=== PATIENT | female | born 1975 | race Hispanic/Latino ===

== ENCOUNTER 2023-11-14 07:26 | Day surgery (SDC) | payer BC ==
[2023-11-13 09:12] LABS: Specific Gravity 1.007 (1.005-1.030)
[2023-11-13 09:27] LABS: Potassium 3.4 mEq/L (3.5-5.1)
[2023-11-14] MEDS: Ringers Lactate 1,000 ML IV ONE ×2 (07:55→08:35)
[2023-11-14] MEDS ORDERED: propofoL 200 MG/20 ML VIAL IV ONE ×2 (08:29→08:30)
[2023-11-14] MEDS ORDERED: LIDOCAINE 1% MPF 2 ML AMPULE ONE (08:30)
[2023-11-14 11:59] VITALS: TEMP 97.6
[2023-11-14 12:02] VITALS: BP 128/88; O2SAT 100
--- NOTE | 2023-11-14 15:22 | EKG ---
Test Date: 2023-11-13 Test Time: 09:56:09 Paper Cutting Machine Operator: MICHAEL MEASUREMENT RESULTS: Intervals: Rate: 55 OK: 180 QRSD: 90 QT: 410 QTc: 392 [place]: P: 78 OK: 180 QRS: 79 T: 59 INTERPRETIVE STATEMENTS: Sinus bradycardia Otherwise normal ECG Compared to ECG 05/30/2005 01:47:00 Sinus rhythm no longer present Electronically Signed On 11-14-23 15:19:59 SENIOR MEDICAL BILLING SPECIALIST by James Tillman
== END 2023-11-14 10:05 | disposition home or self-care (01) ==
LOC: OR 07:26
PROVIDERS: ATTEND Surgery
PROC: 0DBL8ZX Excision of Transverse Colon, Via Natural or Artificial Opening Endoscopic, Diagnostic (ICD-10-PCS; 2023-11-14)
PROC: 0DBM8ZX Excision of Descending Colon, Via Natural or Artificial Opening Endoscopic, Diagnostic (ICD-10-PCS; principal; 2023-11-14 08:45)
DX: Z12.11 Encounter for screening for malignant neoplasm of colon (principal); K64.8 Other hemorrhoids; D12.3 Benign neoplasm of transverse colon; K63.89 Other specified diseases of intestine
CPT/HCPCS: 93005; 80048; 36415; 81025; 88305; 45380; J2704 ×2; J7120

== ENCOUNTER 2025-04-24 12:09 | Emergency (ER) | payer BC ==
--- OUTSIDE RECORDS SUMMARY | 2025-04-24 12:13 | XMS REPORT | Continuity of Care Document ---
Author Name Unknown Address [address] [place] [address] [facility] Address [address] [place] [address] Care Team Providers Care Process Engineering Manager Name Role Phone Marty Sky Primary Care Physician [phone] Valentine Morales Attending Clinician Unavailabl e Doctor Unassigned, [place] Attending Clinician U Maryam Garcia MD Attending Clinician [phone] Unknown, Attending Attending Clinician UnavailMARYAM Major Attending Clinician Unavailable MODESTO FRY Attending Clinician Unavailsen e Modesto Cabrera Attending Clinician [phone] ASHLEY LARA Attending Clinician Unavailable ASHLEY LARA Attending Clinician Unavailable CATHI FISHER Attending Clinician Unavailable Cathi Alfonso Attending Clinician Unknown, Attending Attending Clinician Unavailab Surinder JUNIOR, Juanita Attending Clinician Doctor Unassigned, [place] Attending Clinician U LO Bautista Attending Clinician Unavailable Jennifer Tidwell MA Attending Clinician UnavailMaryam Randall MD Attending Clinician [phone], [facility] Attending Clinician Unavailable Lo De Jesus PA-C Attending Clinician [phone] Manisha Cat MA Attending Clinician Unavaila SALEEM Randall Attending Clinician UnavailLILLIE Cisse Attending Clinician Unavailable MARY JANE BALBUENA Attending Clinician Unavailable TRACE CASSIDY Attending Clinician Chuyita Valentine Leach Admitting Clinician UnavailASHLEY Rao Admitting Clinician Unavailable LILLIE ROSALES Admitting Clinician Unavailable Payers Payer Name Policy Type Policy Number Effective Date Expirati on Date Source [facility] 111 [id number] [facility] Problems Condition Name Condition Details Condition Category Status Onset Date Resolution Date Last Treatment Date Treating Clinician Comments Source Menorrhagi a Menorrhagi a Problem Active 8- 00:00: 00 [facility] Anxiety Anxiety Problem Active 8- 00:00: 00 [facility] Dyspareuni a Dyspareuni a Problem Active 8- 00:00: 00 [facility] SUPERFICIA L POSTOPERAT MOHIT WOUND INFECTIO SUPERFICIA L POSTOPERAT MOHIT WOUND INFECTIO Active 05/18/2022 [facility] Diagnosis Active 0 6- 00:00: 00 2022-05-21 08:12:00 Rosendo Toledo SWELLING ON HIP BONE SWELLING ON HIP BONE Active 05/18/2022 [facility] Diagnosis Active 6- 00:00: 00 2022-05-19 03:18:00 Rosendo Toledo Family planning, IUD (intrauter ine device) check/rein sertion/re moval Family planning, IUD (intrauter ine device) check/rein sertion/re moval Disease Active 9- 00:00: 00 [facility] E66.01 E66.01 Active 03/14/2021 [facility] Diagnosis Active 03-14 00:00: 00 2021-04-03 12:33:00 Rosendo Toledo K21.9 - GASTRO-ESO PHAGEAL REFLUX DISEA K21.9 - GASTRO-ESO PHAGEAL REFLUX DISEA Active 03/07/2021 [facility] Diagnosis Active 03-07 00:01: 00 2021-03-14 09:59:00 Rosendo Toledo N/A N/A Active 8 [facility] Diagnosis Active 12-19 00:00: 00 2018-01-08 05:24:00 Rosendo Toledo M54.12 - RADICULOPA THY, CERVICAL REGION M54.12 - RADICULOPA THY, CERVICAL REGION Active 10/31/2017 [facility] Diagnosis Active 2016-12 2 00:01: 00 2017-11-08 11:39:00 Rosendo Toledo Plantar wart Plantar wart Problem [facility] Acquired hammer toe of left foot Other hammer toe(s) (acquired) , left foot Problem [facility] Acquired hallux valgus Hallux valgus (acquired) , left foot Problem [facility] Obesity, unspecifie d Obesity, unspecifie d 04/16/2018 [facility] Problem 2018-04-16 12:07:57 Rosendo Toledo Body mass index (BMI) 33.0-33.9, adult Body mass index (BMI) 33.0-33.9, adult 04/16/2018 [facility] Problem 2018-04-16 12:07:57 Rosendo Toledo Simple obesity (disorder) Simple obesity (disorder) Active Problem 05/22/2022 [facility], [facility], [facility] Problem Active 2022-05-22 23:28:37 Rosendo Toledo No known active problems No known active problems Disease [facility] History of Past Illness Condition Name Condition Details Condition Category Status Onset Date Resolution Date Last Treatment Date Treating Clinician Comments Source Infection following a procedure, other surgical site, initial encounter Infection following a procedure, other surgical site, initial encounter 05/19/2022 05/22/2022 [facility] Problem 2021-0 6-19 05:20: 00 2022-05-22 23:28:37 2022-05-22 23:28:37 Rosendo Toledo Radiculopa thy, lumbosacra l region Radiculopa thy, lumbosacra l region 01/24/2018 04/16/2018 [facility] Problem 2017-0 2-24 04:58: 05 2018-04-16 12:07:57 2018-04-16 12:07:57 Rosendo Toledo Allergies, Adverse Reactions, Alerts Allergy Name Allergy Type Status Severity Reaction(s) Onset Date Inactive Date Treating Clinician Comments Source HYDROCOD ONE-ACET AMINOPHE N DRUG Active Unknown-Cmnt 08-26 00:00: 00 [facility] CODEINE DRUG INGREDI Active Palpitations 08-11 00:00: 00 [facility] PENICILL INS Drug Class Active Hives 08-11 00:00: 00 [facility] Penicill ins Propensi ty to adverse reaction s Active Hives 08-11 00:00: 00 [facility] Codeine Propensi ty to adverse reaction s Active Palpitations 08-11 00:00: 00 [facility] Penicill ins Propensi ty to adverse reaction s Active Hives 08-11 00:00: 00 [facility] penicill in penicill in Active Rosendo Toledo acetamin ophen / hydrocod one acetamin ophen / hydrocod one Active Unknown [facility] Codeine Allergy to substanc e Active [facility] PENICILL INS Allergy to substanc e Active [facility] metoclop ramide metoclop ramide Active anxiety [facility] Reglan Allergy to substanc e Active [facility] Penicill in Penicill in Active Unknown [facility] codeine codeine Active Unknown [facility] Social History Social Habit Start Date Stop Date Quantity Comments Source Sex Assigned At [facility] History of Tobacco Use [facility] Alcohol intake 2023-10-01 00:00:00 2023-10-01 00:00:00 Current non-drinker of alcohol (finding) [facility] History of Social function 2023-10-01 00:00:00 2023-10-01 00:00:00 [facility] Alcohol Comment 2023-10-01 00:00:00 2023-10-01 00:00:00 socially [facility] Exposure to SARS-CoV-2 (event) 2022-11-09 00:00:00 2022-11-19 13:23:00 Not sure [facility] Tobacco use and exposure 2022-09-19 00:00:00 2022-09-19 00:00:00 Smokeless tobacco non-user [facility] Alcoholic beverage intake 2018-04-23 00:00:00 2018-04-23 00:00:00 Current non-drinker of alcohol (finding) [facility] Social History 2017-12-26 21:59:07 2017-12-26 21:59:07 [facility] Smoking Status Start Date Stop Date Source Never Smoker [facility] [place] [facility] Medications Ordered Medication Name Filled Medication Name Start Date Stop Date Current Medication? Ordering Clinician Indication Dosage Frequency Signature (SIG) Comments Components Source methylpredn isolone sod succ (SOLU-MEDRO L) injection 125 mg 2023-12 22:15: 00 11-08 21:33 :00 No [id number] 125mg 125 mg, Intramuscu lar, ONCE, 1 dose, On Fri11/08/24 at 1615, Routine [facility] ipratropium -albuteroL (DUONEB) 0.5 mg-3 mg(2.5 mg base)/3 mL nebulizer solution 3 mL 2023-12 22:15: 00 11-08 21:31 :00 No [id number] 3mL 3 mL, Inhalation , ONCE, 1 dose, On Fri11/08/24 at 1615, Routine [facility] guaiFENesin 400 mg tablet 2023-12 00:00: 00 Yes [id number] 400mg Take 1 tablet by mouth every 4 (four) hours as needed for Cough. [facility] promethazin e-dextromet horphan 6.25-15 mg/5 mL syrup 2023-12 00:00: 00 Yes [id number] 5mL Take 5 mL by mouth 4 (four) times daily as needed for Cough. [facility] albuterol 90 mcg/actuati on inhaler 2023-12 00:00: 00 Yes [id number] 2{puff} Inhale 2 Puffs every 6 (six) hours as needed for Wheezing, Shortness of Breath or Bronchospa sm. [facility] predniSONE 20 mg tablet 2023-12 00:00: 00 11-14 05:59 :00 No [id number] 40mg Take 2 tablets by mouth in the morning for 5 days. [facility] ondansetron 4 mg disintegrat ing tablet 2023-12 00:00: 00 Yes [id number] 4mg Take 1 tablet by mouth every 8 (eight) hours as needed for Nausea and Vomiting (N/V). [facility] methylPREDN ISolone (MEDROL, THOR,) 4 mg tablets 2023-12 00:00: 00 Yes [id number] Take by mouth SEE-INSTRU CTIONS. follow package directions [facility] benzonatate 200 mg capsule 2023-12 00:00: 00 11-06 05:59 :00 No [id number] 200mg Take 1 capsule by mouth 3 (three) times daily as needed for Cough for up to 10 days. [facility] FLUoxetine 10 mg capsule 2022-12 00:00: 00 Yes [facility] Nitrofurant oin&Nit. Macrocryst 100 mg capsule 2021-12 00:00: 00 11-25 05:59 :00 No [id number] 100mg Take 1 capsule by mouth in the morning and 1 capsule in the evening. Do all this for 5 days. [facility] ibuprofen-f amotidine 800-26.6 mg per tablet 2021-12 13:26: 18 Yes 1 tablet [facility] multivitami n/iron/foli c acid (CENTRUM WOMEN ORAL) 2021-12 13:26: 18 Yes as directed [facility] ibuprofen-f amotidine (DUEXIS) 800-26.6 mg per tablet 2021-12 14:51: 20 Yes 1 tablet [facility] vit B complex no.12/niaci n,B3, (VITAMIN B COMPLEX NO.12-NIACI N ORAL) 2021-12 14:51: 20 Yes as directed [facility] vancomycin + Sodium Chloride 0.9% IV 250 mL 05-19 19:53: 00 No 2001 mg: infuse over 2.5 hours For adult patients only: Round to nearest 250 mg per Medical Staff approval MEDICATION WASTE Product Size: 1000 mg Product Wasted: ___ mg Rosendo Toledo ondansetron 05-19 18:53: 00 No Notes: (Same as: Zofran) MEDICATION WASTE Product Size: 4 mg Product Wasted: ___ mg Rosendo Massey 05-19 18:53: 00 No 100 mg, 1 cap, Route: PO, Drug form: CAP, Q8H, Dosing Weight 67.898, kg, PRN Cough, Start date: 05/19/22 13:53:00 CDT, Duration: 30 day, Stop date: 06/18/22 13:52:00 CDT, 0 Rosendo Toledo diphenhydrA MINE 05-19 18:53: 00 No Notes: (Same as: Benadryl) Rosendo Toledo acetaminoph en 05-19 18:53: 00 No Notes: Do not exceed 4 gm/day. (Same as: Tylenol) Rosendo Toledo Sodium Chloride 0.9% IV 1,000 mL 05-19 16:37: 00 No 1,000 mL, Rate: 50 ml/hr, Infuse over: 20 hr, Route: IV, Dosing Weight 67.898 kg, Total Volume: 1,000, Start date: 05/19/22 11:37:00 CDT, Duration: 30 day, Stop date: 06/18/22 11:36:00 CDT, BSA: 1.76 m2, 0 Rosendo Toledo Bactrim DS 800 mg- 160 mg oral tablet 05-19 08:54: 00 Yes 1 tab, PO, BID, # 28 tab, 0 Refill(s) Rosendo Toledo linezolid 600 mg oral tablet 05-19 08:53: 00 No 600 mg = 1 tab, PO, Q12H, # 28 tab, 0 Refill(s) Rosendo Toledo cefepime + Sodium Chloride 0.9% IV 100 mL 05-19 08:00: 00 No Notes: (Same As: Maxipime) MEDICATION WASTE Product Size: 1000 mg Product Wasted: ___ mg Rosendo Toledo tramadol 05-19 07:46: 00 No Notes: Not to exceed 400mg/day. (Same As: Ultram) Rosendo marilyn [facility] Vancomycin Pharmacy Dosing Consult 05-19 07:36: 42 No Notes: Vancomycin Pharmacy Dosing Protocol PHARMAC Y USE ONLY Note: This is not a medication order. This is a consultati on order. Rosendo Toledo Dextrose 50% Syringe (D50W) 05-19 07:34: 00 No 12.5 gm, 25 mL, Route: IVP, Drug Form: INJ, Dosing Weight 93.21, kg, PRN, PRN Blood Glucose Results, Start date: 05/19/22 2:34:00 CDT, Duration: 30 day, Stop date: 06/18/22 2:33:00 CDT, 0 Rosendo Toledo glucagon 05-19 07:34: 00 No 1 mg, Route: IM, Drug form: PDR/INJ, PRN, Dosing Weight 93.21, kg, PRN Blood Glucose Results, Start date: 05/19/22 2:34:00 CDT, Duration: 30 day, Stop date: 06/18/22 2:33:00 CDT, 0 Rosendo Toledo vancomycin 05-19 07:06: 00 No 1,000 mg, Route: IVPB, Drug form: INJ, Q12H, Dosing Weight 93.21, kg, Priority: NOW, Start date: 05/19/22 2:06:00 CDT, Duration: 30 day, Stop date: 06/17/22 21:00:00 CDT, ABX Indication : Skin/Soft Tissue Infection Rosendo Toledo Lactated Ringers (Bolus) IV 05-19 06:07: 00 No 1,000 mL, 1,000 ml/hr, Infuse Over: 1 hr, Route: IV, 1,000, Drug form: INJ, ONCE, Priority: STAT, Dosing Weight 93.21 kg, Start date: 05/19/22 1:07:00 CDT, Stop date: 05/19/22 1:07:00 CDT, 0 Jonathanmarie marilyn [place] Keflex 500 mg oral capsule 05-19 05:21: 00 No 500 mg = 1 cap, PO, QID, X 10 day, # 40 cap, 0 Refill(s) Jonathanmarie marilyn [place] levonorgest reL (MIRENA) 20 mcg/24 hours (6 yrs) 52 mg IUD 08-20 08:25: 12 Yes 1{devic e} 1 Device by Intrauteri ne route once now. [facility] levonorgest reL (MIRENA) IUD 1 Device 07-23 16:45: 00 07-23 15:34 :00 No [id number] 1{devic e} [facility] NORETHINDRO NE-E.ESTRAD IOL-IRON (LO LOESTRIN FE ORAL) 07-23 15:33: 16 07-23 00:00 :00 No Take by mouth daily. [facility] ibuprofen-f amotidine (DUEXIS) 800-26.6 mg per tablet 07-23 15:33: 13 07-23 00:00 :00 No Take by mouth daily. [facility] Mirena 21 mcg/24 hr (up to 8 years) 52 mg intrauterin e device Take by intrauterin e route. Mirena 21 mcg/24 hr (up to 8 years) 52 mg intrauterin e device Take by intrauterin e route. 07-23 00:00: 00 No Mirena 21 mcg/24 hr (up to 8 years) 52 mg intrauteri ne device Take by intrauteri ne route. [facility] NORETHINDRO NE-E.ESTRAD IOL-IRON (LO LOESTRIN FE ORAL) 07-17 14:44: 38 Yes Take by mouth daily. [facility] ibuprofen-f amotidine (DUEXIS) 800-26.6 mg per tablet 07-17 14:44: 38 Yes Take by mouth daily. [facility] miSOPROStoL 200 mcg tablet 07-17 00:00: 00 07-23 00:00 :00 No [id number] Take one tablet night before procedure, then take one tablet morning of procedure [facility] Vitamin B 12 Vitamin B 12 02-05 00:00: 00 No Vitamin B 12 [facility] NE-E.ESTR[facility] IOL-IRON (LO LOESTRIN FE ORAL) 06-08 20:33: 12 Yes Take by mouth daily. [facility] ibuprofen-f amotidine 800-26.6 mg per tablet 06-08 20:33: 12 Yes 1 tablet [facility] VIORELE, 28, 0.15-0.02 mgx21 /0.01 mg x 5 per tablet 04-15 00:00: 00 07-23 00:00 :00 No [facility] fluticasone 50 mcg/actuati on nasal spray 04-06 00:00: 00 07-23 00:00 :00 No [facility] Insulin Lispro 01-08 16:36: 00 No Notes: (Same as: Humalog ) Roll in palms of hands gently; Do not shake `vigorousl y. "Single Patient Use Only " WASTE: F/P - Black; E - Municipal Trash Bin Stable for 28 days at room temperatur e. Expires in days from ____Date Rosendo Toledo Morphine 01-08 16:36: 00 No Notes: (Same as:MORPhin e Sulfate) Rosendo Toledo Naloxone 01-08 16:36: 00 No Notes: Same as Narcan Rosendo Toledo Flumazenil 01-08 16:36: 00 No Notes: (Same as: Romazicon) Rosendo Toledo Dexamethaso ne 01-08 16:36: 00 No Notes: Concentrat ion: 4mg/ml Rosendo Toledo Ondansetron 01-08 16:36: 00 No Notes: (Same as: Zofran) MEDICATION WASTE Product Size: 4 mg Product Wasted: ___ mg Rosendo Toledo Meperidine 01-08 16:36: 00 No Notes: (Same as: Demerol) "Use Precaution in Elderly, Seizure disorders, and Renal impairment " Rosendo Toledo Acetaminoph en 01-08 16:36: 00 No Notes: Infuse over 15 minutes Do not exceed 4gm/day of acetaminop hen MEDICATION WASTE Product Size: 1000 mg Product Wasted: ___ mg Rosendo Toledo Labetalol 01-08 16:36: 00 No Notes: (Same as: Normodyne, Trandate) Push over 2 minutes Give bolus over 2-3 minutes. Rosendo Toledo Ketorolac 01-08 16:36: 00 No 4 days MEDICATION WASTE Product Size: 30 mg Product Wasted: ___ mg Rosendo Toledo Hydralazine 01-08 16:36: 00 No Notes: (Same as: Apresoline ) Push over 5 minutes Rosendo Toledo Fentanyl 01-08 16:36: 00 No Notes: (Same as: Sublimaze) Preservati ve free. Rosendo Toledo glycopyrrol ate (ANES) 01-08 16:32: 00 No Route: IV, Drug form: INJ, ONCE, Stop date: 01/08/18 10:32:00 MINER OPERATOR Rosendo Toledo neostigmine (ANES) 01-08 16:32: 00 No Route: IV, Drug form: INJ, ONCE, Stop date: 01/08/18 10:32:00 MINER OPERATOR Rosendo Nurann ondansetron (ANES) 01-08 16:32: 00 No Route: IV, Drug form: INJ, ONCE, Stop date: 01/08/18 10:32:00 MINER OPERATOR Rosendo sanders Tre Methocarbam ol 750 MG Oral Tablet [Robaxin] 01-08 16:21: 00 Yes 750 mg = 1 tab, PO, Q6H, PRN Spasm, # 40 tab, 0 Refill(s) Jonathanmarie marilyn [place] tramadol hydrochlori de 50 MG Oral Tablet 01-08 16:21: 00 Yes 50 mg = 1 tab, PO, Q4H, PRN Pain, # 40 tab, 0 Refill(s) Jonathanmarie marilyn [place] ePHEDrine (ANES) 01-08 15:23: 00 No Route: IV, Drug form: INJ, ONCE, Stop date: 01/08/18 9:23:00 MINER OPERATOR Rosendo Toledo acetaminoph en (ANES) 01-08 14:38: 00 No Route: IV, Drug form: INJ, ONCE, Stop date: 01/08/18 8:38:00 MINER OPERATOR Rosendo Toledo dexamethaso ne (ANES) 01-08 14:28: 00 No Route: IV, Drug form: INJ, ONCE, Stop date: 01/08/18 8:28:00 MINER OPERATOR Rosendo Toledo lidocaine (ANES) 01-08 14:28: 00 No Route: IV, Drug form: INJ, ONCE, Stop date: 01/08/18 8:28:00 MINER OPERATOR Rosendo Toledo rocuronium (ANES) 01-08 14:28: 00 No Route: IV, Drug form: INJ, ONCE, Stop date: 01/08/18 8:28:00 MINER OPERATOR Rosendo Toledo propofol (ANES) 01-08 14:28: 00 No Route: IV, Drug form: INJ, ONCE, Stop date: 01/08/18 8:28:00 MINER OPERATOR Rosendo Toledo fentaNYL (ANES) 01-08 14:28: 00 No Route: IV, Drug form: INJ, ONCE, Stop date: 01/08/18 8:28:00 MINER OPERATOR Rosendo Toledo midazolam (ANES) 01-08 14:28: 00 No Route: IV, Drug form: SOLN, ONCE, Stop date: 01/08/18 8:28:00 MINER OPERATOR Rosendo Toledo Isolyte S PH 7.4 (ANES) 1000 mL 01-08 13:39: 00 No Route: IV, Total Volume: 1,000, Start date: 01/08/18 7:39:00 MINER OPERATOR, Stop date: 01/08/18 8:39:00 MINER OPERATOR Rosendo Toledo Lactated Ringers Injection IV (ANES) 1000 mL 01-08 13:39: 00 No Route: IV, Total Volume: 1,000, Start date: 01/08/18 7:39:00 MINER OPERATOR, Stop date: 01/08/18 8:39:00 MINER OPERATOR Rosendo Toledo vancomycin (ANES) 1000 mg 01-08 13:15: 00 No Route: IV, Drug form: INJ, Start date: 01/08/18 7:15:00 MINER OPERATOR, Stop date: 01/08/18 8:15:00 MINER OPERATOR Rosendo Toledo influenza virus vaccine, inactivated 12-26 22:07: 06 No Notes: (Same as: Fluzone Quadrivale nt, Fluarix Quadrivale nt) For 3 years of age and older (0.5 mL IM) Shake well before use Rosendo Toledo Vitamin D3 50 MCG (1999 UT) Vitamin D3 50 MCG (1999 UT) No 1{capsu le} QD Vitamin D3 50 MCG (1999) Centrum Women - Centrum Women - No [facility] - Vitamin C 1000 MG Vitamin C 1000 MG No 1{table t} QD Vitamin C 1000 MG Duexis 800-26.6 MG Duexis 800-26.6 MG No 1{table t} TID Duexis 800-26.6 MG FLUoxetine HCl 20 MG FLUoxetine HCl 20 MG No 1{capsu le} QD FLUoxetine HCl 20 MG No known medications No Un kitty ity [facility] No known medications No Un kitty ity [facility] No known medications No Un kitty ity [facility] No known medications No Un kitty ity [facility] fluoxetine 20MG fluoxetine 20MG No fluoxetine 20MG [facility] loratadine 10MG loratadine 10MG No loratadine 10MG [facility] Immunizations Ordered Immunization Name Filled Immunization Name Date Status Comments Source Influenza Virus Vaccine Quad IM, Preserv and ABX Free 6 MO-64 YRS 2022-09-19 00:00:00 Completed [facility] Influenza Virus Vaccine Quad IM, Preserv and ABX Free 6 MO-64 YRS 2022-09-19 00:00:00 Completed [facility] Influenza Virus Vaccine Quad IM, Preserv and ABX Free 6 MO-64 YRS 2022-09-19 00:00:00 Completed [facility] Influenza Virus Vaccine Quad IM, Preserv and ABX Free 6 MO-64 YRS 2022-09-19 00:00:00 Completed [facility] Influenza Virus Vaccine Quad IM, Preserv and ABX Free 6 MO-64 YRS 2022-09-19 00:00:00 Completed [facility] Influenza Virus Vaccine Quad IM, Preserv and ABX Free 6 MO-64 YRS 2022-09-19 00:00:00 Completed [facility] Influenza Virus Vaccine Quad IM, Preserv and ABX Free 6 MO-64 YRS 2022-09-19 00:00:00 Completed [facility] Influenza Virus Vaccine Quad IM, Preserv and ABX Free 6 MO-64 YRS 2022-09-19 00:00:00 Completed [facility] Influenza Virus Vaccine Quad IM, Preserv and ABX Free 6 MO-64 YRS (FLUCELVAX) 2022-09-19 00:00:00 Completed [facility] SARS-COV-2 COVID-19 PFIZER VACCINE 2021-03-14 00:00:00 Completed [facility] SARS-COV-2 COVID-19 PFIZER VACCINE 2021-03-14 00:00:00 Completed [facility] SARS-COV-2 COVID-19 PFIZER VACCINE 2021-03-14 00:00:00 Completed [facility] SARS-COV-2 COVID-19 PFIZER VACCINE 2021-03-14 00:00:00 Completed [facility] SARS-COV-2 COVID-19 PFIZER VACCINE 2021-03-14 00:00:00 Completed [facility] SARS-COV-2 COVID-19 PFIZER VACCINE 2021-03-14 00:00:00 Completed [facility] SARS-COV-2 COVID-19 PFIZER VACCINE 2021-03-14 00:00:00 Completed [facility] SARS-COV-2 COVID-19 PFIZER VACCINE 2021-03-14 00:00:00 Completed [facility] SARS-COV-2 COVID-19 PFIZER VACCINE 2021-03-14 00:00:00 Completed [facility] SARS-COV-2 COVID-19 PFIZER VACCINE 2021-03-14 00:00:00 Completed [facility] SARS-COV-2 COVID-19 PFIZER VACCINE 2021-03-14 00:00:00 Completed [facility] SARS-COV-2 COVID-19 PFIZER VACCINE 2021-03-14 00:00:00 Completed [facility] SARS-COV-2 COVID-19 PFIZER VACCINE 2021-03-14 00:00:00 Completed [facility] SARS-COV-2 COVID-19 PFIZER VACCINE 2021-03-14 00:00:00 Completed [facility] SARS-COV-2 COVID-19 PFIZER VACCINE 2021-03-14 00:00:00 Completed [facility] SARS-COV-2 COVID-19 PFIZER VACCINE 2021-03-14 00:00:00 Completed [facility] SARS-COV-2 COVID-19 PFIZER VACCINE 2021-03-14 00:00:00 Completed [facility] SARS-COV-2 COVID-19 PFIZER VACCINE 2021-03-14 00:00:00 Completed [facility] SARS-COV-2 COVID-19 PFIZER VACCINE 2021-03-14 00:00:00 Completed [facility] SARS-COV-2 COVID-19 PFIZER VACCINE 2021-03-14 00:00:00 Completed [facility] SARS-COV-2 COVID-19 PFIZER VACCINE 2021-02-21 00:00:00 Completed [facility] SARS-COV-2 COVID-19 PFIZER VACCINE 2021-02-21 00:00:00 Completed [facility] SARS-COV-2 COVID-19 PFIZER VACCINE 2021-02-21 00:00:00 Completed [facility] SARS-COV-2 COVID-19 PFIZER VACCINE 2021-02-21 00:00:00 Completed [facility] SARS-COV-2 COVID-19 PFIZER VACCINE 2021-02-21 00:00:00 Completed [facility] SARS-COV-2 COVID-19 PFIZER VACCINE 2021-02-21 00:00:00 Completed [facility] SARS-COV-2 COVID-19 PFIZER VACCINE 2021-02-21 00:00:00 Completed [facility] SARS-COV-2 COVID-19 PFIZER VACCINE 2021-02-21 00:00:00 Completed [facility] SARS-COV-2 COVID-19 PFIZER VACCINE 2021-02-21 00:00:00 Completed [facility] SARS-COV-2 COVID-19 PFIZER VACCINE 2021-02-21 00:00:00 Completed [facility] SARS-COV-2 COVID-19 PFIZER VACCINE 2021-02-21 00:00:00 Completed [facility] SARS-COV-2 COVID-19 PFIZER VACCINE 2021-02-21 00:00:00 Completed [facility] SARS-COV-2 COVID-19 PFIZER VACCINE 2021-02-21 00:00:00 Completed [facility] SARS-COV-2 COVID-19 PFIZER VACCINE 2021-02-21 00:00:00 Completed [facility] SARS-COV-2 COVID-19 PFIZER VACCINE 2021-02-21 00:00:00 Completed [facility] SARS-COV-2 COVID-19 PFIZER VACCINE 2021-02-21 00:00:00 Completed [facility] SARS-COV-2 COVID-19 PFIZER VACCINE 2021-02-21 00:00:00 Completed [facility] SARS-COV-2 COVID-19 PFIZER VACCINE 2021-02-21 00:00:00 Completed [facility] SARS-COV-2 COVID-19 PFIZER VACCINE 2021-02-21 00:00:00 Completed [facility] SARS-COV-2 COVID-19 PFIZER VACCINE 2021-02-21 00:00:00 Completed [facility] Pfizer COVID 19 Vaccine Pfizer COVID 19 Vaccine Unknown Completed [facility] SARS-COV-2 COVID-19 PFIZER VACCINE Unknown Completed [facility] Influenza Virus Vaccine Quad IM, Preserv and ABX Free 6 MO-64 YRS (FLUCELVAX) Unknown Completed [facility] SARS-COV-2 COVID-19 PFIZER VACCINE Unknown Completed [facility] Influenza Virus Vaccine Quad IM, Preserv and ABX Free 6 MO-64 YRS (FLUCELVAX) Unknown Completed [facility] Influenza Virus Vaccine Quad IM, Preserv and ABX Free 6 MO-64 YRS (FLUCELVAX) Unknown Completed [facility] SARS-COV-2 COVID-19 PFIZER VACCINE Unknown Completed [facility] SARS-COV-2 COVID-19 PFIZER VACCINE Unknown Completed [facility] Influenza Virus Vaccine Quad IM, Preserv and ABX Free 6 MO-64 YRS (FLUCELVAX) Unknown Completed [facility] SARS-COV-2 COVID-19 PFIZER VACCINE Unknown Completed [facility] Influenza Virus Vaccine Quad IM, Preserv and ABX Free 6 MO-64 YRS (FLUCELVAX) Unknown Completed [facility] SARS-COV-2 COVID-19 PFIZER VACCINE Unknown Completed [facility] Influenza Virus Vaccine Quad IM, Preserv and ABX Free 6 MO-64 YRS (FLUCELVAX) Unknown Completed [facility] SARS-COV-2 COVID-19 PFIZER VACCINE Unknown Completed [facility] Influenza Virus Vaccine Quad IM, Preserv and ABX Free 6 MO-64 YRS (FLUCELVAX) Unknown Completed [facility] SARS-COV-2 COVID-19 PFIZER VACCINE Unknown Completed [facility] Influenza Virus Vaccine Quad IM, Preserv and ABX Free 6 MO-64 YRS (FLUCELVAX) Unknown Completed [facility] Influenza Virus Vaccine Quad IM, Preserv and ABX Free 6 MO-64 YRS (FLUCELVAX) Unknown Completed [facility] SARS-COV-2 COVID-19 PFIZER VACCINE Unknown Completed [facility] Influenza Virus Vaccine Quad IM, Preserv and ABX Free 6 MO-64 YRS (FLUCELVAX) Unknown Completed [facility] SARS-COV-2 COVID-19 PFIZER VACCINE Unknown Completed [facility] Vital Signs Vital Name Observation Time Observation Value Comments S antonioce Systolic blood pressure 2024-11-08 21:04:00 117 mm[Hg] [facility] Diastolic blood pressure 2024-11-08 21:04:00 69 mm[Hg] [facility] Heart rate 2024-11-08 21:04:00 64 /min [facility] Body temperature 2024-11-08 21:04:00 36.72 Sera [facility] Respiratory rate 2024-11-08 21:04:00 20 /min [facility] Body height 2024-11-08 21:04:00 160 cm [facility] Body weight 2024-11-08 21:04:00 65.046 kg [facility] acute hospital BMI 2024-11-08 21:04:00 25.40 kg/m2 [facility] acute hospital Oxygen saturation in Arterial blood by Pulse oximetry 2024-11-08 21:04:00 98 /min [facility] Systolic blood pressure 2024-10-26 16:17:00 111 mm[Hg] [facility] Diastolic blood pressure 2024-10-26 16:17:00 75 mm[Hg] [facility] Heart rate 2024-10-26 16:17:00 64 /min [facility] Body temperature 2024-10-26 16:17:00 36.83 Sera [facility] Respiratory rate 2024-10-26 16:17:00 20 /min [facility] Body height 2024-10-26 16:17:00 160 cm [facility] acute hospital Body weight 2024-10-26 16:17:00 62.687 kg [facility] acute hospital BMI 2024-10-26 16:17:00 24.48 kg/m2 [facility] acute hospital Oxygen saturation in Arterial blood by Pulse oximetry 2024-10-26 16:17:00 100 /min [facility] Body Weight 2024-07-19 00:00:00 135.6 [lb_av] [facility] BP Systolic 2024-07-19 00:00:00 117 mm[Hg] [facility] BP Diastolic 2024-07-19 00:00:00 76 mm[Hg] [facility] Height 2024-07-19 00:00:00 63 [in_i] [facility] BMI (Body Mass Index) 2024-07-19 00:00:00 24 kg/m2 [facility] Systolic blood pressure 2024-04-25 15:52:00 112 mm[Hg] [facility] Diastolic blood pressure 2024-04-25 15:52:00 69 mm[Hg] [facility] Heart rate 2024-04-25 15:52:00 67 /min [facility] Body temperature 2024-04-25 15:52:00 36.83 Sera [facility] Respiratory rate 2024-04-25 15:52:00 17 /min [facility] Body weight 2024-04-25 15:52:00 65.635 kg General acute hospital BMI 2024-04-25 15:52:00 23.36 kg/m2 General acute hospital Oxygen saturation in Arterial blood by Pulse oximetry 2024-04-25 15:52:00 98 /min [facility] Systolic blood pressure 2023-10-01 15:25:00 116 mm[Hg] [facility] Diastolic blood pressure 2023-10-01 15:25:00 75 mm[Hg] [facility] Heart rate 2023-10-01 15:25:00 53 /min [facility] Body temperature 2023-10-01 15:25:00 36.67 Sera [facility] Respiratory rate 2023-10-01 15:25:00 17 /min [facility] Body height 2023-10-01 15:25:00 167.6 cm [facility] acute hospital Body weight 2023-10-01 15:25:00 75.569 kg General acute hospital BMI 2023-10-01 15:25:00 26.89 kg/m2 [facility] acute hospital Systolic blood pressure 2022-11-19 19:34:00 134 mm[Hg] [facility] Diastolic blood pressure 2022-11-19 19:34:00 85 mm[Hg] [facility] Heart rate 2022-11-19 19:34:00 75 /min [facility] Body temperature 2022-11-19 19:34:00 36.83 Sera [facility] Respiratory rate 2022-11-19 19:34:00 16 /min [facility] Body weight 2022-11-19 19:34:00 72.576 kg General acute hospital BMI 2022-11-19 19:34:00 28.34 kg/m2 General acute hospital Oxygen saturation in Arterial blood by Pulse oximetry 2022-11-19 19:34:00 96 /min [facility] Systolic blood pressure 2022-09-19 18:22:00 103 mm[Hg] [facility] Diastolic blood pressure 2022-09-19 18:22:00 65 mm[Hg] [facility] Heart rate 2022-09-19 18:22:00 68 /min [facility] Body temperature 2022-09-19 18:22:00 36.72 Sera [facility] Respiratory rate 2022-09-19 18:22:00 18 /min [facility] Body height 2022-09-19 18:22:00 160 cm [facility] acute hospital Body weight 2022-09-19 18:22:00 70.126 kg [facility] acute hospital BMI 2022-09-19 18:22:00 27.39 kg/m2 [facility] acute hospital Systolic blood pressure 2021-08-20 13:25:00 114 mm[Hg] [facility] Diastolic blood pressure 2021-08-20 13:25:00 78 mm[Hg] [facility] Heart rate 2021-08-20 13:25:00 63 /min [facility] Body temperature 2021-08-20 13:25:00 36.72 Sera [facility] Respiratory rate 2021-08-20 13:25:00 16 /min [facility] Body height 2021-08-20 13:25:00 162.6 cm [facility] acute hospital Body weight 2021-08-20 13:25:00 77.747 kg General acute hospital BMI 2021-08-20 13:25:00 29.42 kg/m2 [facility] Systolic blood pressure 2021-08-01 18:16:00 106 mm[Hg] [facility] Diastolic blood pressure 2021-08-01 18:16:00 72 mm[Hg] [facility] Heart rate 2021-08-01 18:16:00 66 /min [facility] Body temperature 2021-08-01 18:16:00 36.89 Sera [facility] Respiratory rate 2021-08-01 18:16:00 18 /min [facility] Body height 2021-08-01 18:16:00 162.6 cm [facility] Body weight 2021-08-01 18:16:00 78.472 kg [facility] BMI 2021-08-01 18:16:00 29.70 kg/m2 [facility] Systolic blood pressure 2021-08-01 18:16:00 106 mm[Hg] [facility] Diastolic blood pressure 2021-08-01 18:16:00 72 mm[Hg] [facility] Heart rate 2021-08-01 18:16:00 66 /min [facility] Body temperature 2021-08-01 18:16:00 36.89 Sera [facility] Respiratory rate 2021-08-01 18:16:00 18 /min [facility] Body height 2021-08-01 18:16:00 162.6 cm [facility] Body weight 2021-08-01 18:16:00 78.472 kg [facility] BMI 2021-08-01 18:16:00 29.70 kg/m2 [facility] Systolic blood pressure 2021-07-23 15:12:00 110 mm[Hg] [facility] Diastolic blood pressure 2021-07-23 15:12:00 73 mm[Hg] [facility] Heart rate 2021-07-23 15:12:00 53 /min [facility] Body temperature 2021-07-23 15:12:00 37 Sera [facility] Respiratory rate 2021-07-23 15:12:00 18 /min [facility] Body height 2021-07-23 15:12:00 162.6 cm [facility] Body weight 2021-07-23 15:12:00 78.472 kg [facility] BMI 2021-07-23 15:12:00 29.70 kg/m2 [facility] acute hospital Systolic blood pressure 2021-07-17 14:36:00 114 mm[Hg] [facility] Diastolic blood pressure 2021-07-17 14:36:00 74 mm[Hg] [facility] Heart rate 2021-07-17 14:36:00 60 /min [facility] Body temperature 2021-07-17 14:36:00 36.94 Sera [facility] Respiratory rate 2021-07-17 14:36:00 18 /min [facility] Body height 2021-07-17 14:36:00 154.9 cm [facility] acute hospital Body weight 2021-07-17 14:36:00 79.379 kg General acute hospital BMI 2021-07-17 14:36:00 33.07 kg/m2 [facility] acute hospital Respitory Rate 2022-05-20 20:14:[facility] Systolic (mm Hg) 2022-05-20 20:14:37 [facility] Diastolic (mm Hg) 2022-05-20 20:14:37 [facility] Heart Rate 2022-05-20 20:14:37 [facility] Temperature Oral (F) 2022-05-20 20:14:24 98.4 F [facility] Respitory Rate 2022-05-20 16:47:15 [facility] Systolic (mm Hg) 2022-05-20 16:47:10 [facility] Diastolic (mm Hg) 2022-05-20 16:47:10 [facility] Heart Rate 2022-05-20 16:47:10 [facility] Temperature Oral (F) 2022-05-20 16:46:00 98.2 F [facility] Heart Rate 2022-05-20 12:38:44 [facility] Respitory Rate 2022-05-20 12:38:44 [facility] [place] [facility] Systolic (mm Hg) 2022-05-20 12:38:39 [facility] Diastolic (mm Hg) 2022-05-20 12:38:39 [facility] Temperature Oral (F) 2022-05-20 12:38:08 98.1 F [facility] Height 2022-05-19 08:47:00 160.02 cm [facility] Weight 2022-05-19 08:47:00 [facility] [place] [facility] BMI Calculated 2022-05-19 08:47:00 [facility] BMI Calculated 2018-03-30 15:47:00 [facility] Weight 2018-03-30 15:47:00 [facility] [place] [facility] Heart Rate 2018-03-30 15:47:00 [facility] Temperature Oral (F) 2018-03-30 15:47:00 98.2 F [facility] Systolic (mm Hg) 2018-03-30 15:47:00 [facility] Diastolic (mm Hg) 2018-03-30 15:47:00 [facility] Height 2018-03-30 15:47:00 162.56 cm [facility] Systolic (mm Hg) 2018-02-16 14:57:00 [facility] Diastolic (mm Hg) 2018-02-16 14:57:00 [facility] Temperature Oral (F) 2018-02-16 14:57:00 97.6 F [facility] Heart Rate 2018-02-16 14:57:00 [facility] [place] [facility] Height 2018-02-16 14:57:00 162.56 cm [facility] BMI Calculated 2018-01-19 15:10:00 [facility] Weight 2018-01-19 15:10:00 [facility] [place] [facility] Height 2018-01-19 15:10:00 162.56 cm [facility] Systolic (mm Hg) 2018-01-19 15:10:00 [facility] Diastolic (mm Hg) 2018-01-19 15:10:00 [facility] Temperature Oral (F) 2018-01-19 15:10:00 97.6 F [facility] Heart Rate 2018-01-19 15:10:00 [facility] [place] [facility] Systolic (mm Hg) 2018-01-08 17:30:00 [facility] Diastolic (mm Hg) 2018-01-08 17:30:00 [facility] Respitory Rate 2018-01-08 17:30:00 [facility] Systolic (mm Hg) 2018-01-08 17:20:00 [facility] Diastolic (mm Hg) 2018-01-08 17:20:00 [facility] Respitory Rate 2018-01-08 17:20:00 [facility] Systolic (mm Hg) 2018-01-08 17:15:00 [facility] Diastolic (mm Hg) 2018-01-08 17:15:00 [facility] Respitory Rate 2018-01-08 17:15:00 [facility] [place] [facility] Heart Rate 2018-01-08 12:00:00 [facility] [place] Heart Rate 2017-12-26 22:00:00 [facility] Weight 2017-12-26 21:30:00 [facility] [place] [facility] BMI Calculated 2017-12-26 21:30:00 [facility] [place] [facility] Height 2017-12-26 21:30:00 162.56 cm [facility] Height 2017-12-10 20:50:00 162.56 cm [facility] BMI Calculated 2017-12-10 20:50:00 [facility] Weight 2017-12-10 20:50:00 [facility] [place] [facility] Systolic (mm Hg) 2017-12-10 20:50:00 [facility] Diastolic (mm Hg) 2017-12-10 20:50:00 [facility] Temperature Oral (F) 2017-12-10 20:50:00 98.5 F [facility] Heart Rate 2017-12-10 20:50:00 [facility] Height 2017-10-29 21:13:00 162.56 cm [facility] [place] [facility] Weight 2017-10-29 21:13:00 [facility] [place] [facility] BMI Calculated 2017-10-29 21:13:00 [facility] Heart Rate 2017-10-29 21:13:00 [facility] Systolic (mm Hg) 2017-10-29 21:13:00 [facility] Diastolic (mm Hg) 2017-10-29 21:13:00 [facility] Temperature Oral (F) 2017-10-29 21:13:00 98.5 F [facility] Procedures Procedure Date / Time Performed Performing Clinician Source POCT MOLECULAR STREP 2024-10-26 16:05:00 Unknown, Atte nding [facility] TRANSVAGINAL 2024-07-22 00:00:00 [facility] MAMMO, screening, digital, bilateral 2024-07-19 00:00:00 [facility] XR ELBOW >3 VW RIGHT 2024-04-25 16:25:00 Cathi Fisher [facility] AUTHORIZATION FOR RELEASE OF PHI 2024-01-09 06:01:00 Doctor Unassigned, [place] [facility] INSURANCE CORRESPONDENCE 2023-12-11 06:01:00 Doc tor Unassigned, [place] [facility] US PELVIS COMPLETE WITH TRANSVAGINAL 2023-10-07 19:50:00 Ashley Lara [facility] PATIENT FINANCIAL POLICY 2023-10-01 15:13:28 Doctor Unassigned, [place] [facility] EXTERNAL PROVIDER RECORDS 2023-07-11 05:01:00 Do ctor Unassigned, [place] [facility] EXTERNAL MAMMOGRAM 2023-07-01 00:00:00 Doctor Un assigned, [place] [facility] Breast Implants 2022-12-01 00:00:00 [facility] POCT URINALYSIS 2022-11-19 19:37:00 [facility] CONSENT/REFUSAL FOR DIAGNOSIS AND TREATMENT 2022-11-19 19:16:51 Doctor Unassigned, [place] [facility] ASSIGNMENT OF BENEFITS 2022-11-19 19:16:35 Docto r Unassigned, [place] [facility] FLU VACC ([id number]), 6 MO-64 YRS, .5ML, IM, QUAD (FLUCELVAX) 2022-09-19 18:29:36 Lo De Jesus [facility] Abdominoplasty 2021-12-01 00:00:00 [facility] EXTERNAL PROVIDER RECORDS 2021-11-19 06:01:00 Do ctor Unassigned, [place] [facility] EXTERNAL MAMMOGRAM 2021-11-05 14:44:00 Doctor Un assigned, [place] [facility] EXTERNAL PROVIDER RECORDS 2021-08-03 05:01:00 Do ctor Unassigned, [place] [facility] POCT TEST 2021-07-23 00:00:00 Ashley Lara [facility] ASSIGNMENT OF BENEFITS 2021-07-17 14:27:39 Docto r Unassigned, [place] [facility] Laparoscopic Sleeve Gastrectomy 2020-12-01 00:00:00 [facility] INSURANCE CORRESPONDENCE 2018-04-29 05:01:00 Doc tor Unassigned, [place] [facility] REFERRAL- REQUEST/RESPONSE 2018-04-24 05:01:00 Doctor Unassigned, [place] [facility] Delivery 2006-12-01 00:00:00 [facility] Delivery 2003-12-01 00:00:00 [facility] Delivery 2000-12-01 00:00:00 [facility] Appendectomy 1989-12-01 00:00:00 Mona medley Caesarean section [facility] Appendectomy [facility] Encounters Start Date/Time End Date/Time Encounter Type Admission Type Attending [facility] Care Department Encounter ID Source 2024-07-29 14:00:01 Outpatient Valentine Morales [facility] [id number] [facility] 2018-04-23 00:00:00 2025-01-15 03:17:45 Orders Only Doctor Unassigned, [place] Doctor Unassigned, [place] [facility] 1.2.840.114 350.1.13.10 4.2.7.2.686 [id number] [facility] 2025-01-04 00:00:00 2025-01-04 11:43:28 Refill Maryam Rust [facility] [id number] 350.1.13.10 4.2.7.2.686 [id number] [facility] 2024-11-08 14:40:00 2024-11-08 15:00:00 Urgent Care Maryam Rust Unknown, Attending [facility] [id number] 350.1.13.10 4.2.7.2.686 [id number] [facility] 2024-11-08 14:40:00 2024-11-08 14:40:00 Outpatient R MARYAM RUST [facility] [id number] [facility] 2024-10-26 09:20:00 2024-10-26 10:59:40 Outpatient R MODESTO FRY [facility] [id number] [facility] 2024-10-26 09:20:00 2024-10-26 10:59:40 Urgent Care [place] Fry Unknown, Attending [facility] [id number] 350.1.13.10 4.2.7.2.686 [id number] [facility] 2024-10-05 13:30:00 2024-10-05 13:30:00 Outpatient R ASHLEY LARA VIEN [facility] [id number] [facility] 2024-07-29 00:00:00 2024-07-29 00:00:00 Office Visit- Est Pt.- Level 3 [id number] 2024-07-29 00:00:00 2024-07-29 00:00:00 JASSON Monet: [address], [place] [phone] , Ph. [facility] GC_GCBZW_[place] mae [place]* [id number] [facility] 2024-07-22 00:00:00 2024-07-22 00:00:00 Sil Woodward MD: [address], [place] [address] , Ph. [facility]* [id number] [facility] 2024-07-19 00:00:00 2024-07-19 00:00:00 JASSON Monet: [address], [place] [phone] , Ph. [facility] GC_GCBZW_[place] mae [place]* [id number] [facility] 2024-04-25 11:17:12 2024-04-25 23:59:00 Outpatient R CATHI FISHER [facility] [id number] [facility] 2024-04-25 10:40:00 2024-04-25 11:21:49 Urgent Care Cathi Fisher Unknown, Attending [facility] 1.2.840.114 350.1.13.10 4.2.7.2.686 [id number] [facility] 2024-04-25 11:17:12 2024-04-25 11:17:12 Hospital Encounter Cathi Fisher [facility] 1.2.840.114 350.1.13.10 4.2.7.2.686 [id number] [facility] 2024-01-13 00:00:00 2024-01-13 00:00:00 Telephone [facility] 1.2.840.114 350.1.13.10 4.2.7.2.686 [id number] [facility] 2024-01-09 00:00:00 2024-01-09 00:00:00 Orders Only Doctor Unassigned, [place] [facility] 1.2.840.114 350.1.13.10 4.2.7.2.686 [id number] [facility] 2023-12-11 00:00:00 2023-12-11 00:00:00 Orders Only Doctor Unassigned, [place] [facility] 1.2.840.114 350.1.13.10 4.2.7.2.686 [id number] [facility] 2023-10-13 00:00:00 2023-10-13 00:00:00 Patient Secure Msg Doctor Unassigned, [place] [facility] 1.20.114 350.1.13.10 4.2.7.2.686 [id number] [facility] 2023-10-07 13:15:13 2023-10-07 23:59:00 Outpatient R ASHLEY LARA [facility] [id number] [facility] 2023-10-07 13:00:00 2023-10-07 23:59:00 Hospital Encounter LaraAshley Jase [facility] 1.20.114 350.1.13.10 4.2.7.2.686 [id number] [facility] 2023-10-01 10:30:00 2023-10-01 10:45:50 Outpatient R KIN LARAEN [facility] [id number] [facility] 2023-10-01 10:30:00 2023-10-01 10:45:50 Office Visit LaraAshley Jase [facility] 1..114 350.1.13.10 4.2.7.2.686 [id number] [facility] 2023-10-01 00:00:00 2023-10-01 00:00:00 Orders Only Doctor Unassigned, [place] [facility] 1.2.114 350.1.13.10 4.2.7.2.686 [id number] [facility] 2023-09-24 00:00:00 2023-09-24 00:00:00 Pre Visit Outreach Jennifer Tidwell 1.2840.114 350.1.13.10 4.2.7.2.686 [id number] [facility] 2023-07-11 00:00:00 2023-07-11 00:00:00 Orders Only Doctor Unassigned, [place] [facility] 1.2.840.114 350.1.13.10 4.2.7.2.686 [id number] [facility] 2023-07-04 00:00:00 2023-07-04 00:00:00 Telephone Ashley Lara [facility] 1.2840.114 350.1.13.10 4.2.7.2.686 [id number] [facility] 2023-05-15 00:00:00 2023-05-15 00:00:00 Telephone Ashley Lara [facility] 1.2840.114 350.1.13.10 4.2.7.2.686 [id number] [facility] 2023-05-14 00:00:00 2023-05-14 00:00:00 Telephone Ashley Lara [facility] 1.2840.114 350.1.13.10 4.2.7.2.686 [id number] [facility] 2022-11-19 14:00:00 2022-11-19 14:00:00 Urgent Care Maryam Rust Unknown, Attending [facility] 1.2840.114 350.1.13.10 4.2.7.2.686 [id number] [facility] 2022-11-19 14:00:00 2022-11-19 13:41:09 Outpatient R MARYAM RUST [facility] [id number] [facility] 2022-11-19 00:00:00 2022-11-19 00:00:00 Orders Only Doctor Unassigned, [place] [facility] 1.2840.114 350.1.13.10 4.2.7.2.686 [id number] [facility] 2022-09-19 14:00:00 2022-09-19 14:09:00 Outpatient LO WOODS 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 2, [facility] 1.2.840.114 350.1.13.10 4.2.7.2.686 [id number] [facility] 2022-09-19 13:00:00 2022-09-19 13:58:53 [facility] 1.2.840.114 350.1.13.10 4.2.7.2.686 [id number] [facility] 2022-09-12 00:00:00 2022-09-12 00:00:00 Pre Visit Outreach Manisha Cat 1.2.840.114 350.1.13.10 4.2.7.2.686 [id number] [facility] [facility] 2022-07-17 09:30:00 2022-07-17 09:30:00 Outpatient LO WOODS [facility] [id number] [facility] 2022-05-21 00:00:00 2022-05-21 00:00:00 Outpatient SALEEM SIMMS [id number] Trina Hensley 2022-05-19 04:37:16 2022-05-20 22:50:00 Observatio n nullFlavo r [facility] [id number] Rosendo [place] 2022-05-19 02:06:00 2022-05-20 17:50:00 Outpatient LILLIE DOWLING [facility] MED [id number] Rosendo Robbins [facility] 2021-11-19 00:00:00 2021-11-19 00:00:00 Orders Only Doctor Unassigned, [place] [facility] 1.2840.114 350.1.13.10 4.2.7.2.686 [id number] [id number] [facility] 2021-11-12 00:00:00 2021-11-12 00:00:00 Case Management WaqasgabbyEvita burnscy [facility] BUILDING 1.2.840.114 350.1.13.10 4.2.7.2.686 [id number] 134 [id number] [facility] 2021-08-20 08:14:50 2021-08-20 09:00:07 Office Visit Lo De Jesus [facility] Building 1.2840.114 350.1.13.10 4.2.7.2.686 [id number] 134 [id number] [facility] 2021-08-20 08:00:00 2021-08-20 08:00:00 Outpatient R ASHLEY LARA [facility] [id number] [facility] 2021-08-03 00:00:00 2021-08-03 00:00:00 Orders Only Doctor Unassigned, [place] [facility] 1.2840.114 350.1.13.10 4.2.7.2.686 [id number] [id number] [facility] 2021-08-03 00:00:00 2021-08-03 00:00:00 Orders Only Doctor Unassigned, [place] [facility] 1.2840.114 350.1.13.10 4.2.7.2.686 [id number] [facility] 2021-08-01 12:33:04 2021-08-01 13:03:04 Office Visit Ashley Lara [facility] 1.2.840.114 350.1.13.10 4.2.7.2.686 [id number] [facility] 2021-08-01 12:33:04 2021-08-01 13:03:04 Office [facility] 1.2.840.114 350.1.13.10 4.2.7.2.686 [id number] 134 [id number] [facility] 2021-08-01 13:00:00 2021-08-01 13:00:00 Outpatient R ASHLEY LARA [facility] [id number] [facility] 2021-07-31 00:00:00 2021-07-31 00:00:[address] [facility] Building 1.2.840.114 350.1.13.10 4.2.7.2.686 [id number] [facility] 2021-07-31 00:00:00 2021-07-31 00:00:[address] [facility] Building 1.2.840.114 350.1.13.10 4.2.7.2.686 [id number] [facility] 2021-07-23 09:19:17 2021-07-23 09:49:17 Office [address] Ashley Lara [facility] Building 1.2.840.114 350.1.13.10 4.2.7.2.686 [id number] [facility] 2021-07-23 08:30:00 2021-07-23 08:30:00 Outpatient R ASHLEY LARA [facility] [id number] [facility] 2021-07-23 00:00:00 2021-07-23 00:00:00 Case Management Lo De Jesus [facility] Building 1.2.840.114 350.1.13.10 4.2.7.2.686 [id number] 134 [id number] [facility] 2021-07-17 09:28:15 2021-07-17 10:35:37 Office Visit Lo De Jesus [facility] 1.2.840.114 350.1.13.10 4.2.7.2.686 [id number] 134 [id number] [facility] 2021-07-17 09:30:00 2021-07-17 09:30:00 Outpatient Sandro DE JESUSLO [facility] [id number] [facility] 2021-07-17 00:00:00 2021-07-17 00:00:00 Orders Only Doctor Unassigned, [place] [facility] 1.2.840.114 350.1.13.10 4.2.7.2.686 [id number] [facility] 2021-07-12 14:30:00 2021-07-12 14:30:00 Outpatient R ESHA MARY JANE [facility] [id number] [facility] 2021-07-12 13:30:00 2021-07-12 13:30:00 Outpatient R ESHA [facility] [id number] [facility] 2021-05-14 13:15:00 2021-05-14 13:15:00 Outpatient R LO DE JESUS [facility] [id number] [facility] 2021-03-22 10:30:00 2021-03-22 23:59:00 Outpatient TRACE CASSIDY [facility] KANDI [id number] Rosendo sanders [facility] 2021-03-14 14:48:00 2021-03-15 04:59:00 Outpt Diag Services nullFlavo r [facility] Outpatient Imaging - [facility] [id number] Rosendo [place] 2018-03-30 15:00:00 2018-03-31 04:59:59 Outpatient nullFlavo r [facility] [id number] Rosenod [place] 2018-02-16 14:30:00 2018-02-17 04:59:59 Outpatient nullFlavo r [facility] [id number] Rosendo sanders Tre 2018-01-19 15:00:00 2018-01-20 05:59:59 Outpatient nullFlavo r [facility] [id number] Rosendo sanders Tre 2018-01-09 22:05:00 2018-01-11 05:59:59 Phone Message nullFlavo r [facility] [id number] Rosendo sanders Tre 2018-01-08 11:23:00 2018-01-08 18:35:00 Day Surgery nullFlavo r [facility] [id number] Rosendo sanders Tre 2018-01-06 17:19:00 2018-01-08 05:59:59 Phone Message nullFlavo r [facility] [id number] Rosendo sanders Tre 2018-01-08 13:30:00 2017-12-11 05:59:59 Outpatient nullFlavo r [facility] [id number] Jonathanmarie marilyn [place] 2017-12-10 20:30:00 2017-12-11 05:59:59 Outpatient nullFlavo r [facility] [place] [id number] Rosendo sanders Tre 2017-11-10 15:43:00 2017-11-12 05:59:59 Phone Message nullFlavo r [facility] [place] [id number] Rosendo marilyn [place] 2017-11-08 17:27:00 2017-11-09 05:59:00 Outpt Diag Services nullFlavo r [facility] Outpatient Imaging [place] [id number] Jonathanmarie marilyn [place] 2017-10-31 20:00:00 2017-11-01 05:59:59 Outpatient nullFlavo r [facility] [place] [id number] Jonathanmarie marilyn [place] 2017-10-29 19:30:00 2017-10-30 05:59:59 Outpatient nullFlavo r [facility] [place] [id number] Rosendo [place] Results Test Description Test Time Test Comments Results Result Co mments Source [facility] + [id number] 00:00:00* Test Item Value Reference Range Interpretation Comme nts Pap, liquid-based (test code = Pap, liquid-based) NILM nilm HPV high risk DNA (non 16/18 ) (test code = HPV high risk DNA (non 16/18)) NOT DETECTED not detected HPV high risk DNA type 16 (t est code = HPV high risk DNA type 16) NOT DETECTED not detected HPV high risk DNA type 18 (t est code = HPV high risk DNA type 18) NOT DETECTED not detected [facility] trachomatis and Neisseria gonorrhoeae rRNA panel - Specimen by KATHLEEN with probe [id number] 00:00:00* Test Item Value Reference Range Interpretation Comme nts aptima combo 2 swab (CT) (te st code = aptima combo 2 swab (CT)) CT NEG negative aptima combo 2 swab (GC) (te st code = aptima combo 2 swab (GC)) GC NEG negative [facility] ELBOW 3+ VW [id number] 18:01:16EXAM: XR ELBOW 3+ VW RIGHT ORDERING PROVIDER: ?CATHI GREEN HISTORY: ?Pain Technique: 3 views of theright elbow Comparison: [None][facility] 2023-07-01 00:00:00* Test Item Value Reference Range Interpretation Comme nts External Mammogram (test code = 5204) neg Radiology Study observation (narrative) (test code = 02576-2) [facility] W SPECIFIC [id number] 19:38:00* Test Item Value Reference Range Interpretation Comme nts POCT U SP GRAV (test code = 3255) 1.010 mg/dl 1.005-1.025 POCT PH U (test code = 3254) 7 mg/dl 5-8 POCT U LEUK EST (test code = 3263) neg Negative - Negative POCT U NIT (test code = 3262) neg Negative - Negati ve POCT U PROT (test code = 3259) neg Negative - Negative POCT U GLU (test code = 3256) neg Negative - Negati ve POCT U KETONE (test code = 3258) neg Negative - Negative POCT U UROBILI (test code = 3260) neg 0.2-1 POCT U BILI (test code = 3261) neg Negative - Negative POCT U BLD (test code = 3257) trace Negative - Negati ve POCT U COLOR (test code = 3266) yellow POCT U APPEAR (test code = 3267) clear Lab Interpretation (test cod e = 87144-8) Normal [facility]CHEM [id number] 11:25:00* Test Item Value Reference Range Interpretation Comme nts Glucose Lvl (test code = Glucose Lvl) 88 70-99 [id number] 11:25:00* Test Item Value Reference Range Interpretation Comme nts Vanco Lvl (test code = Vanco Lvl) 18.8 [facility] - [id number] 09:29:00* Test Item Value Reference Range Interpretation Comme nts MRSA by PCR (test code = MRSA by PCR) Negative (05/19/22 4:29 AM) [facility] [id number] 09:21:00* Test Item Value Reference Range Interpretation Comme nts Glucose Lvl (test code = Glucose Lvl) 84 70-99 [facility] [id number] 06:34:00* Test Item Value Reference Range Interpretation Comme nts Glucose Lvl (test code = Glucose Lvl) 90 70-99 [facility] [id number] 06:34:00* Test Item Value Reference Range Interpretation Comme nts WBC (test code = WBC) 6.7 3.7-10.4 [facility] [id number] 15:16:00* Test Item Value Reference Range Interpretation Comme nts POCT PREG (test code = 1605) Negative On board controls acceptable with C Line (test code = 3574) Yes POCT PREG LOT # (test code = 3575) POCT PREG TEST DATE ( test code = 3576) Lab Interpretation (test cod e = 11409-9) Normal [facility] [id number] 15:16:00* Test Item Value Reference Range Interpretation Comme nts POCT PREG (test code = 1605) Negative On board controls acceptable with C Line (test code = 3574) Yes POCT PREG LOT # (test code = 3575) POCT PREG TEST DATE ( test code = 3576) Lab Interpretation (test cod e = 78259-5) Normal [facility] [id number] 15:16:00* Test Item Value Reference Range Interpretation Comme nts POCT PREG (test code = 1605) Negative On board controls acceptable with C Line (test code = 3574) Yes POCT PREG LOT # (test code = 3575) POCT PREG TEST DATE ( test code = 3576) Lab Interpretation (test cod e = 88955-8) Normal [facility] [id number] 12:11:00* Test Item Value Reference Range Interpretation Comme nts U Preg (test code = U Preg) Negative (01/08/18 6:11 AM) Elan Hernandez [id number] 21:32:00* Test Item Value Reference Range Interpretation Comme nts U Preg (test code = U Preg) Negative (12/26/17 3:32 PM) Elan Purcell Date/Time Note Provider Source 2024-04-25 11:20:00 Hi, just wanted to let you know the right elbow xray did not show any fracture or dislocation. [facility] 2024-01-13 11:23:28 Received medical records request from [facility] will send to [facility] if any questions regarding these records please reach out [place] R OPERATOR Kassandra Plata MA [facility] 2023-07-07 09:38:28 Formatting of this n ote might be different from the original. Name and verified. Pt advised of results and plan of care as stated below per provider. Mammogram negative. Pt verbalized understanding. MANISHA HATCH RN 07/07/2023 9:38 AM Manisha Hatch RN [facility] 2023-07-04 16:00:10 Formatting of this n ote might be different from the original. 07/01/23: Mammogram negative Ashley Lara MD 07/04/2023 4:00 PM [facility] 2023-07-04 13:08:29 Formatting of this n ote might be different from the original. Received radiology report from [facility] Placed on provider's desk for review. Yari Hurtado [facility] 2022-05-19 02:10:48 Abdomen/Pelvis wo IV contrast CT 05/19/2022 1:07 INDICATION: - surgical wound infection COMPARISON: None. TECHNIQUE: Helical acquisition of the abdomen and pelvis was obtained. Axial, sagittal and coronal images MPR were interpreted. This exam was performed according to our department dose optimization protocol, which includes automated exposure control, adjustment of the mA and/or kV according to patient size and/or use of iterative reconstruction technique. IV contrast: None Enteric contrast: None. DLP: 382 mGy-cm FINDINGS: Lower chest: No acute abnormality. Liver: Unremarkable. Gallbladder and Biliary tree: Unremarkable. Pancreas: Unremarkable. Spleen: Unremarkable. Adrenals: Unremarkable. Kidneys and ureters: Unremarkable. Urinary bladder: Unremarkable. Reproductive organs: Retroverted uterus with intrauterine device Gastrointestinal tract: Sleeve gastrectomy changes are present without dilatation. Small hiatal hernia is present. No small bowel dilatation. Significant colonic fecal volume present. Appendix: Not identified. Vasculature: No abdominal aortic aneurysm. Peritoneum, mesentery and retroperitoneum: Unremarkable. No peritoneal fluid. No pneumoperitoneum. Lymph nodes: Unremarkable. Bones: L5-S1 significant degenerative changes with severe disc narrowing, grade 1 anterolisthesis. Left L5 unilateral spondylolysis present. Soft tissues: Anterior abdominal wall subcutaneous stranding is present. No abdominal wall fluid collection identified. Other: None. IMPRESSION: 1. Small hiatal hernia. No gastric tube dilatation. Significant colonic fecal volume. 2. Anterior abdominal wall subcutaneous edema or inflammatory stranding. No abdominal wall fluid collection. [facility] 2021-03-14 10:02:00 PROCEDURE INFORMATIO N: Exam: FL Upper Gastrointestinal Tract, Air Contrast, Without KUB Exam date and time: 03/14/2021 10:39 AM Age: 46 years old Clinical indication: Gastro-esophageal reflux disease without esophagitis; Additional info: /k21.9 gastro-esophageal reflux disease without esophagitis TECHNIQUE: Imaging protocol: Radiological examination, gastrointestinal tract, upper, air contrast, with specific high density barium, effervescent agent, with or without glucagon with or without delayed images, without KUB. Guided with fluoroscopy. Exam supervised by facility personnel. COMPARISON: No relevant prior studies available. RADIATION DOSE METRICS: Fluoroscopy time (seconds): seconds= 106 Number of fluoro spot images: images= 24 Reference air kerma (DAVID): 41.03 mGy FINDINGS: Aircraft Design Engineer: Unremarkable. Esophagus: Esophagus is unremarkable. Normal primary stripping wave. Stomach: The stomach is unremarkable without significant mass or stricture. Rugal folds are normal. Intestine: Visualized duodenum is unremarkable without mass or stricture. Duodenal bulb is unemarkable. IMPRESSION: Unremarkable upper GI exam. Jose Corbett MD On 03/14/2021 10:55:37; -[id number] [facility] 2017-11-08 11:46:51 MRI CERVICAL SPINE W ITHOUT CONTRAST HISTORY: M54.12 Radiculopathy, cervical region - 42-year-old female reports neck pain and skull base pain and progressively worsening bilateral upper extremity numbness COMPARISON: None available. TECHNIQUE: Multiplanar T1, T2, fluid-sensitive weighted MRI of the cervical spine without contrast is performed on the 1.5 Myah magnet. FINDINGS: No fracture is seen. Vertebral body heights are maintained. No bone marrow edema or aggressive osseous lesion. No discitis/osteomyelitis. Disc protrusions are noted at C5/C6 and C6/C7. Degenerative straightening of the cervical spine. No high-grade cervical canal stenosis. Cervical spinal cord is normal in size, shape, and signal intensity throughout its course. No epidural mass or fluid collection. DISC SPACES: C2/C3: Normal intervertebral disc. No canal stenosis or neural foraminal narrowing. C3/C4: Normal intervertebral disc. No canal stenosis or neural foraminal narrowing. C4/C5: Normal intervertebral disc. No canal stenosis or neural foraminal narrowing. C5/C6: Moderate broad-based posterior disc protrusion with moderate right and mild left uncovertebral spurring. Mild canal stenosis. Moderate right neural foraminal narrowing. Mild left neural foraminal narrowing. C6/C7: Mild broad-based posterior disc protrusion with mild bilateral uncovertebral spurring. No canal stenosis. Moderate bilateral neural foraminal narrowing. C7/T1: Normal intervertebral disc. No canal stenosis or neural foraminal narrowing. The visualized soft tissue structures of the neck are grossly normal. IMPRESSION: 1. Disc degeneration at C5/C6 and C6/C7 as described. 2. Mild canal stenosis at C5/C6. 3. Mild to moderate bilateral neural foraminal narrowing at C5/C6 and C6/C7. SL: [id number] MALNEA Huggins
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
[2025-04-24] MEDS ORDERED: TRAMADOL HCL 50 MG TAB ONE (12:46)
[2025-04-24] MEDS ORDERED: KETOROLAC 30 MG/ML INJ ONE (12:46)
[2025-04-24] MEDS ORDERED: TDAP (DIPHTH,PERTUSS(ACELL),TET VAC) 0.5 ML VIAL IMVAC ONE (12:46)
[2025-04-24 13:12] VITALS: BP 118/70; TEMP 98.4; O2SAT 100
== END 2025-04-24 13:01 | disposition home or self-care (01) ==
LOC: ER 12:09
DX: S01.01XA Laceration without foreign body of scalp, initial encounter (principal); R51.9 Headache, unspecified; Z23 Encounter for immunization
CPT/HCPCS: 12001; 90715; 96372; 99284

== ENCOUNTER 2025-07-18 18:10 | Emergency (ER) | payer MEDICARE ==
--- OUTSIDE RECORDS SUMMARY | 2025-07-18 18:15 | XMS REPORT | Continuity of Care Document ---
Author Name Unknown Address [address] [place] [address] [facility] Address [address] [place] [address] Care Team Providers Care Clamp Jig Assembler Name Role Phone Marty Sky Primary Care Physician [phone] Valentine Morales Attending Clinician Unavailabl e Doctor Unassigned, [place] Attending Clinician U Maryam Garcia MD Attending Clinician [phone] Unknown, Attending Attending Clinician UnavailMARYAM Major Attending Clinician Unavailable MODESTO FRY Attending Clinician Unavailsen e Modesto Cabrera Attending Clinician [phone] ASHLEY LARA Attending Clinician Unavailable ASHLEY LARA Attending Clinician Unavailable CATHI FISHER Attending Clinician Unavailable Cathi Alfonso Attending Clinician Unknown, Attending Attending Clinician Unavailab Surinder JUNIOR, Juanita Attending Clinician [phone] Doctor Unassigned, [place] Attending Clinician U LO Bautista Attending Clinician Unavailable Jennifer Tidwell MA Attending Clinician UnavailMaryam Randall MD Attending Clinician [phone], [facility] Attending Clinician Unavailable Lo De Jesus PA-C Attending Clinician [phone] Manisha Cat MA Attending Clinician Unavaila SALEEM Randall Attending Clinician UnavailLILLIE Cisse Attending Clinician Unavailable MARY JANE BALBUENA Attending Clinician Unavailable TRACE CASSIDY Attending Clinician Chuyita Valentine Leach Admitting Clinician UnavailASHLEY Rao Admitting Clinician Unavailable LILLIE ROSALES Admitting Clinician Unavailable Payers Payer Name Policy Type Policy Number Effective Date Expirati on Date Source [facility] 111 [id number] [facility] Problems Condition Name Condition Details Condition [...] L POSTOPERAT MOHIT WOUND INFECTIO Active 05/18/[address] [facility] Diagnosis Active 0 6- 00:00: 00 2022-05-21 08:12:00 Rosendo Toledo SWELLING ON HIP BONE SWELLING ON HIP BONE Active 05/18/[address] [facility] Diagnosis Active 6- 00:00: 00 2022-05-19 03:18:00 Rosendo Toledo Family planning, IUD (intrauter ine device) check/rein sertion/re moval Family planning, IUD (intrauter ine device) check/rein sertion/re moval Disease Active 9- 00:00: 00 [facility] E66.01 E66.01 Active 03/14/[address] [facility] Diagnosis Active 03-14 00:00: 00 2021-04-03 12:33:00 Rosendo Toledo K21.9 - GASTRO-ESO PHAGEAL REFLUX DISEA K21.9 - GASTRO-ESO PHAGEAL REFLUX DISEA Active 03/07/2021 [facility] Diagnosis Active 03-07 00:01: 00 2021-03-14 09:59:00 Rosendo Toledo N/A N/A Active 8 [facility] Diagnosis Active 12-19 00:00: 00 2018-01-08 05:24:00 Rosendo Toledo M54.12 - RADICULOPA THY, CERVICAL REGION M54.12 - RADICULOPA THY, CERVICAL REGION Active 10/31/2017 [facility] Diagnosis Active 2016-12 2 00:01: 00 2017-11-08 11:39:00 Rosendo Toledo Plantar wart Plantar wart Problem [facility] Acquired hammer toe of left foot Other hammer toe(s) (acquired) , left foot Problem [facility] Acquired hallux valgus Hallux valgus (acquired) , left foot Problem [facility] Obesity, unspecifie d Obesity, unspecifie d 04/16/2018 [facility] Problem 2018-04-16 12:07:57 Rosendo Toledo Body mass index (BMI) 33.0-33.9, adult Body mass index (BMI) 33.0-33.9, adult 04/16/2018 [facility] Problem 2018-04-16 12:07:57 Rosendo Toledo Simple obesity (disorder) Simple obesity (disorder) Active Problem 05/22/2022 [facility], [facility], [facility] Problem Active 2022-05-22 23:28:37 Rosendo Toledo No known active problems No known active problems Disease [facility] History of Past Illness Condition Name Condition Details Condition Category Status Onset Date Resolution Date Last Treatment Date Treating Clinician Comments Source Infection following a procedure, other surgical site, initial encounter Infection following a procedure, other surgical site, initial encounter 05/19/2022 05/22/[address] [facility] Problem 2021-0 6-19 05:20: 00 2022-05-22 23:28:37 2022-05-22 23:28:37 Rosendo Toledo Radiculopa thy, lumbosacra l region Radiculopa thy, lumbosacra l region 01/24/2018 8 [facility] Problem 2-24 04:58: 05 2018-04-16 12:07:57 2018-04-16 12:07:57 Rosendo Toledo Allergies, Adverse Reactions, Alerts Allergy Name Allergy Type Status Severity Reaction(s) Onset Date Inactive Date Treating Clinician Comments Source HYDROCOD ONE-ACET AMINOPHE N DRUG Active Unknown-Cmnt 08-26 00:00: 00 [facility] CODEINE DRUG INGREDI Active Palpitations 08-11 00:00: 00 [facility] PENICILL INS Drug Class Active Hives 08-11 00:00: 00 [facility] Penicill ins Propensi ty to adverse reaction s Active Hives 08-11 00:00: 00 [facility] Codeine Propensi ty to adverse reaction s Active Palpitations 0 08-11 00:00: 00 [facility] Penicill ins Propensi ty to adverse reaction s Active Hives 08-11 00:00: 00 [facility] penicill in penicill in Active Rosendo Toledo Codeine Allergy to substanc e Active [facility] PENICILL INS Allergy to substanc e Active [facility] Reglan Allergy to substanc e Active [facility] acetamin ophen / hydrocod one acetamin ophen / hydrocod one Active Unknown [facility] metoclop ramide metoclop ramide Active anxiety [facility] Penicill in Penicill in Active Unknown [facility] codeine codeine Active Unknown [facility] Social History Social Habit Start Date Stop Date Quantity Comments Source Sex Assigned At [facility] History of Tobacco Use [facility] Alcohol intake 2023-10-01 00:00:00 2023-10-01 00:00:00 Current non-drinker of alcohol (finding) [facility] History of Social function 2023-10-01 00:00:00 2023-10-01 00:00:00 [facility] Alcohol Comment 2023-10-01 00:00:00 2023-10-01 00:00:00 socially [facility] Exposure to SARS-CoV-2 (event) 2022-11-09 00:00:00 2022-11-19 13:23:00 Not sure [facility] Tobacco use and exposure 2022-09-19 00:00:00 2022-09-19 00:00:00 Smokeless tobacco non-user [facility] Alcoholic beverage intake 2018-04-23 00:00:00 2018-04-23 00:00:00 Current non-drinker of alcohol (finding) [facility] Social History 2017-12-26 21:59:07 2017-12-26 21:59:07 [facility] Smoking Status Start Date Stop Date Source Never Smoker [facility] Medications Ordered Medication Name Filled Medication Name Start Date Stop Date Current Medication? Ordering Clinician Indication Dosage Frequency Signature (SIG) Comments Components Source methylpredn isolone sod succ (SOLU-MEDRO L) injection 125 mg 2023-12 22:15: 00 11-08 21:33 :00 No [id number] 125mg 125 mg, Intramuscu lar, ONCE, 1 dose, On Fri11/08/24 at 1615, Routine [facility] ipratropium -albuteroL (DUONEB) 0.5 mg-3 mg(2.5 mg base)/3 mL nebulizer solution 3 mL 2023-12 22:15: 00 11-08 21:31 :00 No [id number] 3mL 3 mL, Inhalation , ONCE, 1 dose, On Fri11/08/24 at 1615, Routine [facility] guaiFENesin 400 mg tablet 2023-12 00:00: 00 Yes [id number] 400mg Take 1 tablet by mouth every 4 (four) hours as needed for Cough. [facility] promethazin e-dextromet horphan 6.25-15 mg/5 mL syrup 2023-12 00:00: 00 Yes [id number] 5mL Take 5 mL by mouth 4 (four) times daily as needed for Cough. [facility] albuterol 90 mcg/actuati on inhaler 2023-12 00:00: 00 Yes [id number] 2{puff} Inhale 2 Puffs every 6 (six) hours as needed for Wheezing, Shortness of Breath or Bronchospa sm. [facility] predniSONE 20 mg tablet 2023-12 00:00: 00 11-14 05:59 :00 No [id number] 40mg Take 2 tablets by mouth in the morning for 5 days. [facility] ondansetron 4 mg disintegrat ing tablet 2023-12 00:00: 00 Yes [id number] 4mg Take 1 tablet by mouth every 8 (eight) hours as needed for Nausea and Vomiting (N/V). [facility] methylPREDN ISolone (MEDROL, THOR,) 4 mg tablets 2023-12 00:00: 00 Yes [id number] Take by mouth SEE-INSTRU CTIONS. follow package directions [facility] benzonatate 200 mg capsule 2023-12 00:00: 00 11-06 05:59 :00 No [id number] 200mg Take 1 capsule by mouth 3 (three) times daily as needed for Cough for up to 10 days. [facility] FLUoxetine 10 mg capsule 2022-12 00:00: 00 Yes [facility] Nitrofurant oin&Nit. Macrocryst 100 mg capsule 2021-12 00:00: 00 11-25 05:59 :00 No [id number] 100mg Take 1 capsule by mouth in the morning and 1 capsule in the evening. Do all this for 5 days. [facility] ibuprofen-f amotidine 800-26.6 mg per tablet 2021-12 13:26: 18 Yes 1 tablet [facility] multivitami n/iron/foli c acid (CENTRUM WOMEN ORAL) 2021-12 13:26: 18 Yes as directed [facility] ibuprofen-f amotidine (DUEXIS) 800-26.6 mg per tablet 2021-12 14:51: 20 Yes 1 tablet [facility] vit B complex no.12/niaci n,B3, (VITAMIN B COMPLEX NO.12-NIACI N ORAL) 2021-12 14:51: 20 Yes as directed [facility] vancomycin + Sodium Chloride 0.9% IV 250 [...] to exceed 400mg/day. (Same As: Ultram) Rosendo Toledo Vancomycin Pharmacy Dosing Consult 05-19 07:36: 42 [...] CDT, Stop date: 05/19/22 1:07:00 CDT, 0 Rosendo Toledo Keflex 500 mg oral capsule 05-19 05:21: 00 No 500 mg = 1 cap, PO, QID, X 10 day, # 40 cap, 0 Refill(s) Rosendo marilyn Toledo levonorgest reL (MIRENA) 20 mcg/24 hours (6 yrs) 52 mg IUD 08-20 08:25: 12 Yes 1{devic e} 1 Device by Intrauteri ne route once now. [facility] levonorgest reL (MIRENA) IUD 1 Device 07-23 16:45: 00 07-23 15:34 :00 No [id number] 1{devic e} [facility] NORETHINDRO NE-E.ESTRAD IOL-IRON (LO LOESTRIN FE ORAL) 07-23 15:33: 16 07-23 00:00 :00 No Take by mouth daily. [facility] ibuprofen-f amotidine (DUEXIS) 800-26.6 mg per tablet 07-23 15:33: 13 07-23 00:00 :00 No Take by mouth daily. [facility] Mirena 21 mcg/24 hr (up to 8 years) 52 mg intrauterin e device Take by intrauterin e route. Mirena 21 mcg/24 hr (up to 8 years) 52 mg intrauterin e device Take by intrauterin e route. 07-23 00:00: 00 No Mirena 21 mcg/24 hr (up to 8 years) 52 mg intrauteri ne device Take by intrauteri ne route. [facility] NORETHINDRO NE-E.ESTRAD IOL-IRON (LO LOESTRIN FE ORAL) 07-17 14:44: 38 Yes Take by mouth daily. [facility] ibuprofen-f amotidine (DUEXIS) 800-26.6 mg per tablet 07-17 14:44: 38 Yes Take by mouth daily. [facility] miSOPROStoL 200 mcg tablet 07-17 00:00: 00 07-23 00:00 :00 No [id number] Take one tablet night before procedure, then take one tablet morning of procedure [facility] Vitamin B 12 Vitamin B 12 02-05 00:00: 00 No Vitamin B 12 NORETHIAZRO NE-E.ESTRAD IOL-IRON (LO LOESTRIN FE ORAL) 06-08 20:33: 12 Yes Take by mouth daily. [facility] ibuprofen-f amotidine 800-26.6 mg per tablet 06-08 20:33: 12 Yes 1 tablet [facility] VIORELE, 28, 0.15-0.02 mgx21 /0.01 mg x 5 per tablet 04-15 00:00: 00 07-23 00:00 :00 No [facility] fluticasone 50 mcg/actuati on nasal spray 04-06 00:00: 00 07-23 00:00 :00 No [facility] Insulin Lispro 01-08 16:36: 00 No Notes: [...] form: INJ, ONCE, Stop date: 01/08/18 10:32:00 [employer] Rosendo Toledo neostigmine (ANES) 01-08 16:32: 00 No Route: IV, Drug form: INJ, ONCE, Stop date: 01/08/18 10:32:00 [employer] Rosendo Nurann ondansetron (ANES) 01-08 16:32: 00 No Route: IV, Drug form: INJ, ONCE, Stop date: 01/08/18 10:32:00 [employer] Rosendo Toledo Methocarbam ol 750 MG Oral Tablet [Robaxin] 01-08 16:21: 00 Yes 750 mg = 1 tab, PO, Q6H, PRN Spasm, # 40 tab, 0 Refill(s) Jonathanmarie marilyn Toledo tramadol hydrochlori de 50 MG Oral Tablet 01-08 16:21: 00 Yes 50 mg = 1 tab, PO, Q4H, PRN Pain, # 40 tab, 0 Refill(s) Memmarie Toledo ePHEDrine (ANES) 01-08 15:23: 00 No Route: IV, Drug form: INJ, ONCE, Stop date: 01/08/18 9:23:00 [employer] Rosendo Toledo acetaminoph en (ANES) 01-08 14:38: 00 No Route: IV, Drug form: INJ, ONCE, Stop date: 01/08/18 8:38:00 [employer] Rosendo Toledo dexamethaso ne (ANES) 01-08 14:28: 00 No Route: IV, Drug form: INJ, ONCE, Stop date: 01/08/18 8:28:00 [employer] Rosendo Toledo lidocaine (ANES) 01-08 14:28: 00 No Route: IV, Drug form: INJ, ONCE, Stop date: 01/08/18 8:28:00 [employer] Rosendo Toledo rocuronium (ANES) 01-08 14:28: 00 No Route: IV, Drug form: INJ, ONCE, Stop date: 01/08/18 8:28:00 [employer] Rosendo Toledo propofol (ANES) 01-08 14:28: 00 No Route: IV, Drug form: INJ, ONCE, Stop date: 01/08/18 8:28:00 [employer] Rosendo Toledo fentaNYL (ANES) 01-08 14:28: 00 No Route: IV, Drug form: INJ, ONCE, Stop date: 01/08/18 8:28:00 [employer] Rosendo Toledo midazolam (ANES) 01-08 14:28: 00 No Route: IV, Drug form: SOLN, ONCE, Stop date: 01/08/18 8:28:00 [employer] Rosendo Toledo Isolyte S PH 7.4 (ANES) 1000 mL 01-08 13:39: 00 No Route: IV, Total Volume: 1,000, Start date: 01/08/18 7:39:00 [employer], Stop date: 01/08/18 8:39:00 [employer] Rosendo Toledo Lactated Ringers Injection IV (ANES) 1000 mL 01-08 13:39: 00 No Route: IV, Total Volume: 1,000, Start date: 01/08/18 7:39:00 [employer], Stop date: 01/08/18 8:39:00 [employer] Rosendo Toledo vancomycin (ANES) 1000 mg 01-08 13:15: 00 No Route: IV, Drug form: INJ, Start date: 01/08/18 7:15:00 [employer], Stop date: 01/08/18 8:15:00 [employer] Rosendo Toledo influenza virus vaccine, inactivated 12-26 [...] No known medications No Un kitty ity [facility] No known medications No Un kitty ity [facility] No known medications No Un kitty ity [facility] No known medications No Un kitty ity [facility] fluoxetine 20MG fluoxetine 20MG No fluoxetine 20MG [facility] loratadine 10MG loratadine 10MG No loratadine 10MG [facility] Immunizations Ordered Immunization Name Filled Immunization Name Date Status Comments Source Influenza Virus Vaccine Quad IM, Preserv and ABX Free 6 MO-64 YRS 2022-09-19 00:00:00 Completed [facility] Influenza Virus Vaccine Quad IM, Preserv and ABX Free 6 MO-64 YRS 2022-09-19 00:00:00 Completed [facility] Influenza Virus Vaccine Quad IM, Preserv and ABX Free 6 MO-64 YRS 2022-09-19 00:00:00 Completed [facility] Influenza Virus Vaccine Quad IM, Preserv and ABX Free 6 MO-64 YRS 2022-09-19 00:00:00 Completed [facility] Influenza Virus Vaccine Quad IM, Preserv and ABX Free 6 MO-64 YRS 2022-09-19 00:00:00 Completed [facility] Influenza Virus Vaccine Quad IM, Preserv and ABX Free 6 MO-64 YRS 2022-09-19 00:00:00 Completed [facility] Influenza Virus Vaccine Quad IM, Preserv and ABX Free 6 MO-64 YRS 2022-09-19 00:00:00 Completed [facility] Influenza Virus Vaccine Quad IM, Preserv and ABX Free 6 MO-64 YRS 2022-09-19 00:00:00 Completed [facility] Influenza Virus Vaccine Quad IM, Preserv and ABX Free 6 MO-64 YRS (FLUCELVAX) 2022-09-19 00:00:00 Completed [facility] SARS-COV-2 COVID-19 PFIZER VACCINE 2021-03-14 00:00:00 Completed [facility] SARS-COV-2 COVID-19 PFIZER VACCINE 2021-03-14 00:00:00 Completed [facility] SARS-COV-2 COVID-19 PFIZER VACCINE 2021-03-14 00:00:00 Completed [facility] SARS-COV-2 COVID-19 PFIZER VACCINE 2021-03-14 00:00:00 Completed [facility] SARS-COV-2 COVID-19 PFIZER VACCINE 2021-03-14 00:00:00 Completed [facility] SARS-COV-2 COVID-19 PFIZER VACCINE 2021-03-14 00:00:00 Completed [facility] SARS-COV-2 COVID-19 PFIZER VACCINE 2021-03-14 00:00:00 Completed [facility] SARS-COV-2 COVID-19 PFIZER VACCINE 2021-03-14 00:00:00 Completed [facility] SARS-COV-2 COVID-19 PFIZER VACCINE 2021-03-14 00:00:00 Completed [facility] SARS-COV-2 COVID-19 PFIZER VACCINE 2021-03-14 00:00:00 Completed [facility] SARS-COV-2 COVID-19 PFIZER VACCINE 2021-03-14 00:00:00 Completed [facility] SARS-COV-2 COVID-19 PFIZER VACCINE 2021-03-14 00:00:00 Completed [facility] SARS-COV-2 COVID-19 PFIZER VACCINE 2021-03-14 00:00:00 Completed [facility] SARS-COV-2 COVID-19 PFIZER VACCINE 2021-03-14 00:00:00 Completed [facility] SARS-COV-2 COVID-19 PFIZER VACCINE 2021-03-14 00:00:00 Completed [facility] SARS-COV-2 COVID-19 PFIZER VACCINE 2021-03-14 00:00:00 Completed [facility] SARS-COV-2 COVID-19 PFIZER VACCINE 2021-03-14 00:00:00 Completed [facility] SARS-COV-2 COVID-19 PFIZER VACCINE 2021-03-14 00:00:00 Completed [facility] SARS-COV-2 COVID-19 PFIZER VACCINE 2021-03-14 00:00:00 Completed [facility] SARS-COV-2 COVID-19 PFIZER VACCINE 2021-03-14 00:00:00 Completed [facility] SARS-COV-2 COVID-19 PFIZER VACCINE 2021-02-21 00:00:00 Completed [facility] SARS-COV-2 COVID-19 PFIZER VACCINE 2021-02-21 00:00:00 Completed [facility] SARS-COV-2 COVID-19 PFIZER VACCINE 2021-02-21 00:00:00 Completed [facility] SARS-COV-2 COVID-19 PFIZER VACCINE 2021-02-21 00:00:00 Completed [facility] SARS-COV-2 COVID-19 PFIZER VACCINE 2021-02-21 00:00:00 Completed [facility] SARS-COV-2 COVID-19 PFIZER VACCINE 2021-02-21 00:00:00 Completed [facility] SARS-COV-2 COVID-19 PFIZER VACCINE 2021-02-21 00:00:00 Completed [facility] SARS-COV-2 COVID-19 PFIZER VACCINE 2021-02-21 00:00:00 Completed [facility] SARS-COV-2 COVID-19 PFIZER VACCINE 2021-02-21 00:00:00 Completed [facility] SARS-COV-2 COVID-19 PFIZER VACCINE 2021-02-21 00:00:00 Completed [facility] SARS-COV-2 COVID-19 PFIZER VACCINE 2021-02-21 00:00:00 Completed [facility] SARS-COV-2 COVID-19 PFIZER VACCINE 2021-02-21 00:00:00 Completed [facility] SARS-COV-2 COVID-19 PFIZER VACCINE 2021-02-21 00:00:00 Completed [facility] SARS-COV-2 COVID-19 PFIZER VACCINE 2021-02-21 00:00:00 Completed [facility] SARS-COV-2 COVID-19 PFIZER VACCINE 2021-02-21 00:00:00 Completed [facility] SARS-COV-2 COVID-19 PFIZER VACCINE 2021-02-21 00:00:00 Completed [facility] SARS-COV-2 COVID-19 PFIZER VACCINE 2021-02-21 00:00:00 Completed [facility] SARS-COV-2 COVID-19 PFIZER VACCINE 2021-02-21 00:00:00 Completed [facility] SARS-COV-2 COVID-19 PFIZER VACCINE 2021-02-21 00:00:00 Completed [facility] SARS-COV-2 COVID-19 PFIZER VACCINE 2021-02-21 00:00:00 Completed [facility] Pfizer COVID 19 Vaccine Pfizer COVID 19 Vaccine Unknown Completed [facility] SARS-COV-2 COVID-19 PFIZER VACCINE Unknown Completed [facility] Influenza Virus Vaccine Quad IM, Preserv and ABX Free 6 MO-64 YRS (FLUCELVAX) Unknown Completed [facility] SARS-COV-2 COVID-19 PFIZER VACCINE Unknown Completed [facility] Influenza Virus Vaccine Quad IM, Preserv and ABX Free 6 MO-64 YRS (FLUCELVAX) Unknown Completed [facility] Influenza Virus Vaccine Quad IM, Preserv and ABX Free 6 MO-64 YRS (FLUCELVAX) Unknown Completed [facility] SARS-COV-2 COVID-19 PFIZER VACCINE Unknown Completed [facility] SARS-COV-2 COVID-19 PFIZER VACCINE Unknown Completed [facility] Influenza Virus Vaccine Quad IM, Preserv and ABX Free 6 MO-64 YRS (FLUCELVAX) Unknown Completed [facility] SARS-COV-2 COVID-19 PFIZER VACCINE Unknown Completed [facility] Influenza Virus Vaccine Quad IM, Preserv and ABX Free 6 MO-64 YRS (FLUCELVAX) Unknown Completed [facility] SARS-COV-2 COVID-19 PFIZER VACCINE Unknown Completed [facility] Influenza Virus Vaccine Quad IM, Preserv and ABX Free 6 MO-64 YRS (FLUCELVAX) Unknown Completed [facility] SARS-COV-2 COVID-19 PFIZER VACCINE Unknown Completed [facility] Influenza Virus Vaccine Quad IM, Preserv and ABX Free 6 MO-64 YRS (FLUCELVAX) Unknown Completed [facility] SARS-COV-2 COVID-19 PFIZER VACCINE Unknown Completed [facility] Influenza Virus Vaccine Quad IM, Preserv and ABX Free 6 MO-64 YRS (FLUCELVAX) Unknown Completed [facility] Influenza Virus Vaccine Quad IM, Preserv and ABX Free 6 MO-64 YRS (FLUCELVAX) Unknown Completed [facility] SARS-COV-2 COVID-19 PFIZER VACCINE Unknown Completed [facility] Influenza Virus Vaccine Quad IM, Preserv and ABX Free 6 MO-64 YRS (FLUCELVAX) Unknown Completed [facility] SARS-COV-2 COVID-19 PFIZER VACCINE Unknown Completed [facility] Vital Signs Vital Name Observation Time Observation Value Comments S wild Systolic blood pressure 2024-11-08 21:04:00 117 mm[Hg] [facility] Diastolic blood pressure 2024-11-08 21:04:00 69 mm[Hg] [facility] Heart rate 2024-11-08 21:04:00 64 /[facility] Body temperature 2024-11-08 21:04:00 36.72 Sera [facility] Respiratory rate 2024-11-08 21:04:00 20 /min [facility] Body height 2024-11-08 21:04:00 160 cm [facility] Body weight 2024-11-08 21:04:00 65.046 kg [facility] BMI 2024-11-08 21:04:00 25.40 kg/m2 [facility] Oxygen saturation in Arterial blood by Pulse oximetry 2024-11-08 21:04:00 98 /min [facility] Systolic blood pressure 2024-10-26 16:17:00 111 mm[Hg] [facility] Diastolic blood pressure 2024-10-26 16:17:00 75 mm[Hg] [facility] Heart rate 2024-10-26 16:17:00 64 /min [facility] Body temperature 2024-10-26 16:17:00 36.83 Sera [facility] Respiratory rate 2024-10-26 16:17:00 20 /min [facility] Body height 2024-10-26 16:17:00 160 cm [facility] Body weight 2024-10-26 16:17:00 62.687 kg [facility] BMI 2024-10-26 16:17:00 24.48 kg/m2 [facility] Oxygen saturation in Arterial blood by Pulse oximetry 2024-10-26 16:17:00 100 /min [facility] Body Weight 2024-07-19 00:00:00 135.6 [lb_av] [facility] BP Systolic 2024-07-19 00:00:00 117 mm[Hg] [facility] BP Diastolic 2024-07-19 00:00:00 76 mm[Hg] [facility] Height 2024-07-19 00:00:00 63 [in_i] [facility] BMI (Body Mass Index) 2024-07-19 00:00:00 24 kg/m2 [facility] Systolic blood pressure 2024-04-25 15:52:00 112 mm[Hg] [facility] Diastolic blood pressure 2024-04-25 15:52:00 69 mm[Hg] [facility] Heart rate 2024-04-25 15:52:00 67 /min [facility] Body temperature 2024-04-25 15:52:00 36.83 Sera [facility] Respiratory rate 2024-04-25 15:52:00 17 /min [facility] Body weight 2024-04-25 15:52:00 65.635 kg [facility] BMI 2024-04-25 15:52:00 23.36 kg/m2 [facility] Oxygen saturation in Arterial blood by Pulse oximetry 2024-04-25 15:52:00 98 /min [facility] Systolic blood pressure 2023-10-01 15:25:00 116 mm[Hg] [facility] Diastolic blood pressure 2023-10-01 15:25:00 75 mm[Hg] [facility] Heart rate 2023-10-01 15:25:00 53 /min [facility] Body temperature 2023-10-01 15:25:00 36.67 Sera [facility] [facility] Res[facility] rate 2023-10-01 15:25:00 17 /min [facility] Body height 2023-10-01 15:25:00 167.6 cm [facility] Body weight 2023-10-01 15:25:00 75.569 kg [facility] BMI 2023-10-01 15:25:00 26.89 kg/m2 [facility] Systolic blood pressure 2022-11-19 19:34:00 134 mm[Hg] [facility] Diastolic blood pressure 2022-11-19 19:34:00 85 mm[Hg] [facility] Heart rate 2022-11-19 19:34:00 75 /min [facility] Body temperature 2022-11-19 19:34:00 36.83 Sera [facility] Respiratory rate 2022-11-19 19:34:00 16 /min [facility] Body weight 2022-11-19 19:34:00 72.576 kg [facility] BMI 2022-11-19 19:34:00 28.34 kg/m2 [facility] Oxygen saturation in Arterial blood by Pulse oximetry 2022-11-19 19:34:00 96 /min [facility] Systolic blood pressure 2022-09-19 18:22:00 103 mm[Hg] [facility] Diastolic blood pressure 2022-09-19 18:22:00 65 mm[Hg] [facility] Heart rate 2022-09-19 18:22:00 68 /min [facility] Body temperature 2022-09-19 18:22:00 36.72 Sera [facility] Respiratory rate 2022-09-19 18:22:00 18 /min [facility] Body height 2022-09-19 18:22:00 160 cm [facility] Body weight 2022-09-19 18:22:00 70.126 kg [facility] BMI 2022-09-19 18:22:00 27.39 kg/m2 [facility] Systolic blood pressure 2021-08-20 13:25:00 114 mm[Hg] [facility] Diastolic blood pressure 2021-08-20 13:25:00 78 mm[Hg] [facility] Heart rate 2021-08-20 13:25:00 63 /min [facility] Body temperature 2021-08-20 13:25:00 36.72 Sera [facility] Respiratory rate 2021-08-20 13:25:00 16 /min [facility] Body height 2021-08-20 13:25:00 162.6 cm [facility] Body weight 2021-08-20 13:25:00 77.747 kg [facility] BMI 2021-08-20 13:25:00 29.42 kg/m2 [facility] Systolic blood pressure 2021-08-01 18:16:00 106 mm[Hg] [facility] Diastolic blood pressure 2021-08-01 18:16:00 72 mm[Hg] [facility] Heart rate 2021-08-01 18:16:00 66 /min [facility] Body temperature 2021-08-01 18:16:00 36.89 Sera [facility] Respiratory rate 2021-08-01 18:16:00 18 /min [facility] Body height 2021-08-01 18:16:00 162.6 cm [facility] weight 2021-08-01 18:16:00 78.472 kg [facility] BMI 2021-08-01 18:16:00 29.70 kg/m2 [facility] Systolic blood pressure 2021-08-01 18:16:00 106 mm[Hg] [facility] Diastolic blood pressure 2021-08-01 18:16:00 72 mm[Hg] [facility] Heart rate 2021-08-01 18:16:00 66 /min [facility] Body temperature 2021-08-01 18:16:00 36.89 Sera [facility] Respiratory rate 2021-08-01 18:16:00 18 /min [facility] Body height 2021-08-01 18:16:00 162.6 cm [facility] Body weight 2021-08-01 18:16:00 78.472 kg [facility] BMI 2021-08-01 18:16:00 29.70 kg/m2 [facility] Systolic blood pressure 2021-07-23 15:12:00 110 mm[Hg] [facility] Diastolic blood pressure 2021-07-23 15:12:00 73 mm[Hg] [facility] Heart rate 2021-07-23 15:12:00 53 /min [facility] Body temperature 2021-07-23 15:12:00 37 Sera [facility] Respiratory rate 2021-07-23 15:12:00 18 /min [facility] Body height 2021-07-23 15:12:00 162.6 cm [facility] Body weight 2021-07-23 15:12:00 78.472 kg [facility] BMI 2021-07-23 15:12:00 29.70 kg/m2 [facility] Systolic blood pressure 2021-07-17 14:36:00 114 mm[Hg] [facility] Diastolic blood pressure 2021-07-17 14:36:00 74 mm[Hg] [facility] Heart rate 2021-07-17 14:36:00 60 /min [facility] Body temperature 2021-07-17 14:36:00 36.94 Sera [facility] Respiratory rate 2021-07-17 14:36:00 18 /min [facility] Body height 2021-07-17 14:36:00 154.9 cm [facility] Body weight 2021-07-17 14:36:00 79.379 kg [facility] BMI 2021-07-17 14:36:00 33.07 kg/m2 [facility] Respitory Rate 2022-05-20 20:14:43 [facility] Systolic (mm Hg) 2022-05-20 20:14:37 [facility] Diastolic (mm Hg) 2022-05-20 20:14:37 [facility] Heart Rate 2022-05-20 20:14:37 [facility] Temperature Oral (F) 2022-05-20 20:14:24 98.4 F [facility] Respitory Rate 2022-05-20 16:47:15 [facility] Systolic (mm Hg) 2022-05-20 16:47:10 [facility] Diastolic (mm Hg) 2022-05-20 16:47:10 [facility] Heart Rate 2022-05-20 16:47:10 [facility] Temperature Oral (F) 2022-05-20 16:46:00 98.2 F [facility] Heart Rate 2022-05-20 12:38:44 [facility] Respitory Rate 2022-05-20 12:38:44 [facility] Systolic (mm Hg) 2022-05-20 12:38:39 [facility] Diastolic (mm Hg) 2022-05-20 12:38:39 [facility] Temperature Oral (F) 2022-05-20 12:38:08 98.1 F [facility] Height 2022-05-19 08:47:00 160.02 cm [facility] Weight 2022-05-19 08:47:00 [facility] BMI Calculated 2022-05-19 08:47:00 [facility] BMI Calculated 2018-03-30 15:47:00 [facility] Weight 2018-03-30 15:47:00 [facility] Heart Rate 2018-03-30 15:47:00 [facility] Temperature Oral (F) 2018-03-30 15:47:00 98.2 F [facility] Systolic (mm Hg) 2018-03-30 15:47:00 [facility] Diastolic (mm Hg) 2018-03-30 15:47:00 [facility] Height 2018-03-30 15:47:00 162.56 cm [facility] Systolic (mm Hg) 2018-02-16 14:57:00 [facility] Diastolic (mm Hg) 2018-02-16 14:57:00 [facility] Temperature Oral (F) 2018-02-16 14:57:00 97.6 F [facility] Heart Rate 2018-02-16 14:57:00 [facility] Height 2018-02-16 14:57:00 162.56 cm [facility] BMI Calculated 2018-01-19 15:10:00 [facility] Weight 2018-01-19 15:10:00 [facility] Height 2018-01-19 15:10:00 162.56 cm [facility] Systolic (mm Hg) 2018-01-19 15:10:00 [facility] Diastolic (mm Hg) 2018-01-19 15:10:00 [facility] Temperature Oral (F) 2018-01-19 15:10:00 97.6 F [facility] Heart Rate 2018-01-19 15:10:00 [facility] Systolic (mm Hg) 2018-01-08 17:30:00 [facility] Diastolic (mm Hg) 2018-01-08 17:30:00 [facility] Respitory Rate 2018-01-08 17:30:00 [facility] Systolic (mm Hg) 2018-01-08 17:20:00 [facility] Diastolic (mm Hg) 2018-01-08 17:20:00 [facility] Respitory Rate 2018-01-08 17:20:00 [facility] Systolic (mm Hg) 2018-01-08 17:15:00 [facility] Diastolic (mm Hg) 2018-01-08 17:15:00 [facility] Respitory Rate 2018-01-08 17:15:00 [facility] Heart Rate 2018-01-08 12:00:00 [facility] Heart Rate 2017-12-26 22:00:00 [facility] Weight 2017-12-26 21:30:00 [facility] BMI Calculated 2017-12-26 21:30:00 [facility] Height 2017-12-26 21:30:00 162.56 cm [facility] Height 2017-12-10 20:50:00 162.56 cm [facility] BMI Calculated 2017-12-10 20:50:00 [facility] Weight 2017-12-10 20:50:00 [facility] Systolic (mm Hg) 2017-12-10 20:50:00 [facility] Diastolic (mm Hg) 2017-12-10 20:50:00 [facility] Temperature Oral (F) 2017-12-10 20:50:00 98.5 F [facility] Heart Rate 2017-12-10 20:50:00 [facility] Height 2017-10-29 21:13:00 162.56 cm [facility] Weight 2017-10-29 21:13:00 [facility] BMI Calculated 2017-10-29 21:13:00 [facility] Heart Rate 2017-10-29 21:13:00 [facility] Systolic (mm Hg) 2017-10-29 21:13:00 [facility] Diastolic (mm Hg) 2017-10-29 21:13:00 [facility] Temperature Oral (F) 2017-10-29 21:13:00 98.5 F [facility] Procedures Procedure Date / Time Performed Performing Clinician Source POCT MOLECULAR STREP 2024-10-26 16:05:00 Unknown, Atte nding [facility] TRANSVAGINAL 2024-07-22 00:00:00 [facility] MAMMO, screening, digital, bilateral 2024-07-19 00:00:00 [facility] XR ELBOW >3 VW RIGHT 2024-04-25 16:25:00 Cathi Fisher [facility] AUTHORIZATION FOR RELEASE OF PHI 2024-01-09 06:01:00 Doctor Unassigned, [place] [facility] INSURANCE CORRESPONDENCE 2023-12-11 06:01:00 Doc tor Unassigned, [place] [facility] US PELVIS COMPLETE WITH TRANSVAGINAL 2023-10-07 19:50:00 Ashley Lara [facility] PATIENT FINANCIAL POLICY 2023-10-01 15:13:28 Doctor Unassigned, [place] [facility] EXTERNAL PROVIDER RECORDS 2023-07-11 05:01:00 Do ctor Unassigned, [place] [facility] EXTERNAL MAMMOGRAM 2023-07-01 00:00:00 Doctor Un assigned, [place] [facility] Breast Implants 2022-12-01 00:00:00 [facility] POCT URINALYSIS 2022-11-19 19:37:00 Maryam Rust [facility] CONSENT/REFUSAL FOR DIAGNOSIS AND TREATMENT 2022-11-19 19:16:51 Doctor Unassigned, [place] [facility] ASSIGNMENT OF BENEFITS 2022-11-19 19:16:35 Docto r Unassigned, [place] [facility] FLU VACC ([id number]), 6 MO-64 YRS, .5ML, IM, QUAD (FLUCELVAX) 2022-09-19 18:29:36 Lo De Jesus [facility] Abdominoplasty 2021-12-01 00:00:00 [facility] EXTERNAL PROVIDER RECORDS 2021-11-19 06:01:00 Do ctor Unassigned, [place] [facility] EXTERNAL MAMMOGRAM 2021-11-05 14:44:00 Doctor Un assigned, [place] [facility] EXTERNAL PROVIDER RECORDS 2021-08-03 05:01:00 Do ctor Unassigned, [place] [facility] POCT TEST 2021-07-23 00:00:00 Ashley Lara [facility] ASSIGNMENT OF BENEFITS 2021-07-17 14:27:39 Docto r Unassigned, [place] [facility] Laparoscopic Sleeve Gastrectomy 2020-12-01 00:00:00 [facility] INSURANCE CORRESPONDENCE 2018-04-29 05:01:00 Doc tor Unassigned, [place] [facility] REFERRAL- REQUEST/RESPONSE 2018-04-24 05:01:00 Doctor Unassigned, [place] [facility] Delivery 2006-12-01 00:00:00 [facility] Delivery 2003-12-01 00:00:00 [facility] Delivery 2000-12-01 00:00:00 [facility] Appendectomy 1989-12-01 00:00:00 Mona medley Caesarean section [facility] Appendectomy [facility] Encounters Start Date/Time End Date/Time Encounter Type Admission Type Attending [facility] Care Facility Care Department Encounter ID Source 2024-07-29 14:00:01 Outpatient Valentine Morales [facility] [id number] [facility] 2018-04-23 00:00:00 2025-01-15 03:17:45 Orders Only Doctor Unassigned, [place] Doctor Unassigned, [place] [facility] 1.2.840.114 350.1.13.10 4.2.7.2.686 [id number] [facility] 2025-01-04 00:00:00 2025-01-04 11:43:28 Refill Maryam Rust [facility] 1.2.840.114 350.1.13.10 4.2.7.2.686 [id number] [facility] 2024-11-08 14:40:00 2024-11-08 15:00:00 Urgent Care Maryam Rust Unknown, Attending [facility] 1.2.840.114 350.1.13.10 4.2.7.2.686 [id number] [facility] 2024-11-08 14:40:00 2024-11-08 14:40:00 Outpatient R MARYAM RUST [facility] [id number] [facility] 2024-10-26 09:20:00 2024-10-26 10:59:40 Outpatient R MODESTO FRY [facility] [id number] [facility] 2024-10-26 09:20:00 2024-10-26 10:59:40 Urgent Care Mod[place] Fry Unknown, Attending [facility] 1.2.840.114 350.1.13.10 4.2.7.2.686 [id number] [facility] 2024-10-05 13:30:00 2024-10-05 13:30:00 Outpatient R KIN LARAEN ASHLEY LARA [facility] [id number] [facility] 2024-07-29 00:00:00 2024-07-29 00:00:00 JASSON Monet: [address], [place] [address] , Ph. [facility]* [id number] [facility] 2024-07-29 00:00:00 2024-07-29 00:00:00 Office Visit- Est Pt.- Level 3 CLS CLS [id number] [facility] 2024-07-22 00:00:00 2024-07-22 00:00:00 Sil Woodward MD: [address], [place] [address] , Ph. [facility] - [facility]* [id number] [facility] 2024-07-19 00:00:00 2024-07-19 00:00:00 JASSON Monet: [address], [place] [address] , Ph. [facility] - GC_GCBZW_La mae Serrano* [id number] [facility] 2024-04-25 11:17:12 2024-04-25 23:59:00 Outpatient R CATHI FISHER [facility] [id number] [facility] 2024-04-25 10:40:00 2024-04-25 11:21:49 Urgent Care Cathi Fisher Unknown, Attending [facility] 1.2.840.114 350.1.13.10 4.2.7.2.686 [id number] [facility] 2024-04-25 11:17:12 2024-04-25 11:17:12 Hospital Encounter [facility] 1.2.840.114 350.1.13.10 4.2.7.2.686 [id number] [facility] 2024-01-13 00:00:00 2024-01-13 00:00:00 Telephone [facility] 1.2.840.114 350.1.13.10 4.2.7.2.686 [id number] [facility] 2024-01-09 00:00:00 2024-01-09 00:00:00 Orders Only Doctor Unassigned, [place] [facility] 1.2.840.114 350.1.13.10 4.2.7.2.686 [id number] [facility] 2023-12-11 00:00:00 2023-12-11 00:00:00 Orders Only Doctor Unassigned, [place] [facility] 1.2840.114 350.1.13.10 4.2.7.2.686 [id number] [facility] 2023-10-13 00:00:00 2023-10-13 00:00:00 Patient Secure Msg Doctor Unassigned, [place] [facility] 1..114 350.1.13.10 4.2.7.2.686 [id number] [facility] 2023-10-07 13:15:13 2023-10-07 23:59:00 Outpatient R ASHLEY LARA [facility] [id number] [facility] 2023-10-07 13:00:00 2023-10-07 23:59:00 Hospital Encounter LaraAshley Jase [facility] 1..114 350.1.13.10 4.2.7.2.686 [id number] [facility] 2023-10-01 10:30:00 2023-10-01 10:45:50 Outpatient R KIN LARAEN [facility] [id number] [facility] 2023-10-01 10:30:00 2023-10-01 10:45:50 Office [facility] 1..114 350.1.13.10 4.2.7.2.686 [id number] [facility] 2023-10-01 00:00:00 2023-10-01 00:00:00 Orders Only Doctor Unassigned, [place] [facility] 1..114 350.1.13.10 4.2.7.2.686 [id number] [facility] 2023-09-24 00:00:00 2023-09-24 00:00:00 Pre Visit Outreach Jennifer Tidwell 1.84.114 350.1.13.10 4.2.7.2.686 [id number] [facility] 2023-07-11 00:00:00 2023-07-11 00:00:00 Orders Only Doctor Unassigned, [place] [facility] 1.20.114 350.1.13.10 4.2.7.2.686 [id number] [facility] 2023-07-04 00:00:00 2023-07-04 00:00:00 Telephone Ashley Lara [facility] BUILDING 1.2840.114 350.1.13.10 4.2.7.2.686 [id number] [facility] 2023-05-15 00:00:00 2023-05-15 00:00:00 Telephone Ashley Lara [facility] BUILDING 1.2840.114 350.1.13.10 4.2.7.2.686 [id number] [facility] 2023-05-14 00:00:00 2023-05-14 00:00:00 Telephone Ashley Lara [facility] 1.2840.114 350.1.13.10 4.2.7.2.686 [id number] [facility] 2022-11-19 14:00:00 2022-11-19 14:00:00 Urgent Care Maryam Rust Unknown, Attending [facility] 1.840.114 350.1.13.10 4.2.7.2.686 [id number] [facility] 2022-11-19 14:00:00 2022-11-19 13:41:09 Outpatient R MARYAM RUST [facility] [id number] [facility] 2022-11-19 00:00:00 2022-11-19 00:00:00 Orders Only Doctor Unassigned, [place] [facility] 1.2840.114 350.1.13.10 4.2.7.2.686 [id number] [facility] 2022-09-19 14:00:00 2022-09-19 14:09:00 Outpatient LO WODOS [facility] [id number] [facility] 2022-09-19 14:00:00 2022-09-19 14:09:00 Marketing Analyst Visit 2, [facility] 1.2.840.114 350.1.13.10 4.2.7.2.686 [id number] [facility] 2022-09-19 13:00:00 2022-09-19 13:58:53 Office Visit Lo De Jesus [facility] 1.2.840.114 350.1.13.10 4.2.7.2.686 [id number] [facility] 2022-09-12 00:00:00 2022-09-12 00:00:00 Pre Visit Outreach Manisha Cat 1.2.840.114 350.1.13.10 4.2.7.2.686 [id number] [facility] 2022-07-17 09:30:00 2022-07-17 09:30:00 Outpatient LO WOODS [facility] [id number] [facility] 2022-05-21 00:00:00 2022-05-21 00:00:00 Outpatient SALEEM SIMMS [id number] Trina Hensley 2022-05-19 04:37:16 2022-05-20 22:50:00 Observatio n nullFlavo r [facility] [id number] Rosendo [place] 2022-05-19 02:06:00 2022-05-20 17:50:00 Outpatient LILLIE DOWLING [facility] [id number] Rosendo [place] [facility] 2021-11-19 00:00:00 2021-11-19 00:00:00 Orders Only Doctor Unassigned, [place] [facility] 1.2840.114 350.1.13.10 4.2.7.2.686 [id number] [facility] 2021-11-12 00:00:00 2021-11-12 00:00:00 Case Management Lo De Jesus [facility] 1.2.840.114 350.1.13.10 4.2.7.2.686 [id number] [facility] 2021-08-20 08:14:50 2021-08-20 09:00:07 Office Visit Agusto LoAshley Christy [facility] Building 1.2840.114 350.1.13.10 4.2.7.2.686 [id number] [facility] 2021-08-20 08:00:00 2021-08-20 08:00:00 Outpatient R ASHLEY LARA [facility] [id number] [facility] 2021-08-03 00:00:00 2021-08-03 00:00:00 Orders Only Doctor Unassigned, [place] [facility] 1.2840.114 350.1.13.10 4.2.7.2.686 [id number] [facility] 2021-08-03 00:00:00 2021-08-03 00:00:00 Orders Only Doctor Unassigned, [place] [facility] 1.2840.114 350.1.13.10 4.2.7.2.686 [id number] [facility] 2021-08-01 12:33:04 2021-08-01 13:03:04 Office Visit Ashley Lara [facility] 1.2.840.114 350.1.13.10 4.2.7.2.686 [id number] [facility] 2021-08-01 12:33:04 2021-08-01 13:03:04 Office Visit Ashley Lara RUST Fannin Diandra [facility] Building 1.2.840.114 350.1.13.10 4.2.7.2.686 [id number] [facility] 2021-08-01 13:00:00 2021-08-01 13:00:00 Outpatient R ASHLEY LARA [facility] [id number] [facility] 2021-07-31 00:00:00 2021-07-31 00:00:00 Telephone Ashley Lara [facility] Building 1.2.840.114 350.1.13.10 4.2.7.2.686 [id number] [facility] 2021-07-31 00:00:00 2021-07-31 00:00:00 Telephone Ashley Lara [facility] Building 1.2.840.114 350.1.13.10 4.2.7.2.686 [id number] [facility] 2021-07-23 09:19:17 2021-07-23 09:49:17 Office Visit Ashley Lara [facility] Building 1.2.840.114 350.1.13.10 4.2.7.2.686 [id number] [facility] 2021-07-23 08:30:00 2021-07-23 08:30:00 Outpatient R ASHLEY LARA [facility] [id number] [facility] 2021-07-23 00:00:00 2021-07-23 00:00:00 Case Management Lo De Jesus [facility] Building 1.2.840.114 350.1.13.10 4.2.7.2.686 [id number] [facility] 2021-07-17 09:28:15 2021-07-17 10:35:37 Office Visit WaqasEvita johnstoncy [facility] 1.2.840.114 350.1.13.10 4.2.7.2.686 [id number] [facility] 2021-07-17 09:30:00 2021-07-17 09:30:00 Outpatient Sandro DE JESUS LO [facility] [id number] [facility] 2021-07-17 00:00:00 2021-07-17 00:00:00 Orders Only Doctor Unassigned, [place] [facility] 1.2.840.114 350.1.13.10 4.2.7.2.686 [id number] [facility] 2021-07-12 14:30:00 2021-07-12 14:30:00 Outpatient JAS MCMILLANIAN [facility] [id number] [facility] 2021-07-12 13:30:00 2021-07-12 13:30:00 Outpatient Sandro BALBUENA [facility] [id number] [facility] 2021-05-14 13:15:00 2021-05-14 13:15:00 Outpatient R AGUSTO LO [facility] [id number] [facility] 2021-03-22 10:30:00 2021-03-22 23:59:00 Outpatient TRACE CASSIDY [facility] KANDI [id number] Rosendo sanders [facility] 2021-03-14 14:48:00 2021-03-15 04:59:00 Outpt Diag Services nullFlavo r [facility] Outpatient Imaging - [facility] [id number] Rosendo [place] 2018-03-30 15:00:00 2018-03-31 04:59:59 Outpatient nullFlavo r [facility] [id number] Rosendo [place] 2018-02-16 14:30:00 2018-02-17 04:59:59 Outpatient nullFlavo r [facility] [id number] Rosendo sanders Tre 2018-01-19 15:00:00 2018-01-20 05:59:59 Outpatient nullFlavo r [facility] [id number] Rosendo sanders Tre 2018-01-09 22:05:00 2018-01-11 05:59:59 Phone Message nullFlavo r [facility] [id number] Rosendo sanders Tre 2018-01-08 11:23:00 2018-01-08 18:35:00 Day Surgery nullFlavo r [facility] [id number] Rosendo sanders Tre 2018-01-06 17:19:00 2018-01-08 05:59:59 Phone Message nullFlavo r [facility] [id number] Rosendo sanders Tre 2018-01-08 13:30:00 2017-12-11 05:59:59 Outpatient nullFlavo r [facility] [id number] 03 Jonathanmarie marilyn [place] 2017-12-10 20:30:00 2017-12-11 05:59:59 Outpatient nullFlavo r [facility] [place] [id number] Rosendo marilyn [place] 2017-11-10 15:43:00 2017-11-12 05:59:59 Phone Message nullFlavo r [facility] [place] [id number] 01 Jonathanmarie marilyn [place] 2017-11-08 17:27:00 2017-11-09 05:59:00 Outpt Diag Services nullFlavo r [facility] Outpatient Imaging [place] [id number] Rosendo [place] 2017-10-31 20:00:00 2017-11-01 05:59:59 Outpatient nullFlavo r [facility] [place] [id number] Jonathanmarie marilyn [place] 2017-10-29 19:30:00 2017-10-30 05:59:59 Outpatient nullFlavo r [facility] [place] [id number] Rosendo [place] Results Test Description Test Time Test Comments Results [facility] [id number] 00:00:00* Test Item Value Reference Range Interpretation [...] panel - Specimen by KATHLEEN with probe [id number] 00:00:00* Test Item Value Reference Range Interpretation Comme nts aptima combo 2 swab (CT) (te st code = aptima combo 2 swab (CT)) CT NEG negative aptima combo 2 swab (GC) (te st code = aptima combo 2 swab (GC)) GC NEG negative [facility] VW [id number] 18:01:16EXAM: XR ELBOW 3+ VW RIGHT ORDERING PROVIDER: ?CATHI GREEN HISTORY: ?Pain Technique: 3 views of theright elbow Comparison: [None][facility]:00* Test Item Value Reference Range Interpretation Comme nts External Mammogram (test code = 5204) neg Radiology Study observation (narrative) (test code = 36326-2) [facility] SPECIFIC [id number] 19:38:00* Test Item Value Reference Range Interpretation [...] clear Lab Interpretation (test cod e = 01060-3) Normal [facility] [id number] 11:25:00* Test Item Value Reference Range Interpretation Comme nts Glucose Lvl (test code = Glucose Lvl) 88 70-99 [id number] 11:25:00* Test Item Value Reference Range Interpretation Comme nts Vanco Lvl (test code = Vanco Lvl) 18.8 [facility] [id number] 09:29:00* Test Item Value Reference Range Interpretation Comme nts MRSA by PCR (test code = MRSA by PCR) Negative (05/19/22 4:29 AM) [facility] [id number] 09:21:00* Test Item Value Reference Range Interpretation Comme nts Glucose Lvl (test code = Glucose Lvl) 84 70-99 [facility] [id number] 06:34:00* Test Item Value Reference Range Interpretation Comme nts Glucose Lvl (test code = Glucose Lvl) 90 70-99 [id number] 06:34:00* Test Item Value Reference Range Interpretation Comme nts WBC (test code = WBC) 6.7 3.7-10.4 [facility] [id number] 15:16:00* Test Item Value Reference Range Interpretation Comme nts POCT PREG (test code = 1605) Negative On board controls acceptable with C Line (test code = 3574) Yes POCT PREG LOT # (test code = 3575) POCT PREG TEST DATE ( test code = 3576) Lab Interpretation (test cod e = 82705-1) Normal [facility] [id number] 15:16:00* Test Item Value Reference Range Interpretation Comme nts POCT PREG (test code = 1605) Negative On board controls acceptable with C Line (test code = 3574) Yes POCT PREG LOT # (test code = 3575) POCT PREG TEST DATE ( test code = 3576) Lab Interpretation (test cod e = 24556-0) Normal [facility] [id number] 15:16:00* Test Item Value Reference Range Interpretation Comme nts POCT PREG (test code = 1605) Negative On board controls acceptable with C Line (test code = 3574) Yes POCT PREG LOT # (test code = 3575) POCT PREG TEST DATE ( test code = 3576) Lab Interpretation (test cod e = 15262-9) Normal [facility] [id number] 12:11:00* Test Item Value Reference Range Interpretation Comme nts U Preg (test code = U Preg) Negative (01/08/18 6:11 AM) [facility] [id number] 21:32:00* Test Item Value Reference Range Interpretation Comme nts U Preg (test code = U Preg) Negative (12/26/17 3:32 PM) Elan Purcell Date/Time Note Provider Source 2024-04-25 11:20:00 Hi, just wanted to let you know the right elbow xray did not show any fracture or dislocation. [facility] 2024-01-13 11:23:28 Received medical records request from [facility] will send to [facility] if any questions regarding these records please reach out [facility] AN TEACHER Kassandra Plata MA [facility] 2023-07-07 09:38:28 Formatting of this n ote might be different from the original. Name and verified. Pt advised of results and plan of care as stated below per provider. Mammogram negative. Pt verbalized understanding. MANISHA HATCH RN 07/07/2023 9:38 AM Manisha Hatch RN [facility] 2023-07-04 16:00:10 Formatting of this n ote might be different from the original. 07/01/23: Mammogram negative Ashley Lara MD 07/04/2023 4:[address] [facility] 2023-07-04 13:08:29 Formatting of this n ote might be different from the original. Received radiology report from [facility] Placed on provider's desk for review. Yari Hurtado [facility] 2022-05-19 02:10:48 Abdomen/Pelvis wo IV contrast [...] inflammatory stranding. No abdominal wall fluid collection. [facility] 2021-03-14 10:02:00 PROCEDURE INFORMATIO N: Exam: FL [...] Reference air kerma (DAVID): 41.03 mGy FINDINGS: [place] [employer] Agent: Unremarkable. Esophagus: Esophagus is unremarkable. Normal primary stripping wave. Stomach: The stomach is unremarkable without significant mass or stricture. Rugal folds are normal. Intestine: Visualized duodenum is unremarkable without mass or stricture. Duodenal bulb is unemarkable. IMPRESSION: Unremarkable upper GI exam. Jose Corbett MD On 03/14/2021 10:55:37; -[id number] [facility] 2017-11-08 11:46:51 MRI CERVICAL [...] foraminal narrowing at C5/C6 and C6/C7. SL: [id number] MALENA Huggins
[2025-07-18] MEDS ORDERED: ONDANSETRON 4 MG/2 ML VIAL ONE (19:20)
[2025-07-18] MEDS ORDERED: NA CHLORIDE 0.9% 1,000 ML ONE (19:21)
[2025-07-18] MEDS ORDERED: MORPHINE 4 MG/ML SYR ONE (19:21)
[2025-07-18] MEDS ORDERED: LIDOCAINE VISCOUS 2% 10ML ORAL SOLN ONE (19:21)
[2025-07-18] MEDS ORDERED: MAGNES/ALUMIN/SIMET 30ML UCUP ONE (19:21)
[2025-07-18 19:24] LABS: Absolute Lymphocytes (CBC) 1.7 K/uL (0.7-4.9); Hematocrit 37.0 % (36.0-45.0); Hemoglobin 12.0 g/dL (12.0-15.0); MCH 26.7 pg (27.0-35.0); MCHC 32.4 g/dL (32.0-36.0); MCV 82.3 fL (80-100); MPV 8.0 fL (7.6-11.3); Nucleated RBC Absolute Count 0.0 (0-0); Nucleated Red Blood Cells % 0.1 % (0-0); RBC Red Blood Cell Count 4.50 M/uL (3.86-4.86); Urine Microscopic Reflex YN NO UMIC; White Blood Count 5.50 thou/uL (4.3-10.9)
[2025-07-18] MEDS ORDERED: DIPHENHYDRAMINE 50 MG/ML VIAL ONE (19:28)
[2025-07-18 19:42] LABS: ALT/SGPT 25.0 U/L (13-56); AST/SGOT 20.0 U/L (15-37); Albumin 3.5 g/dL (3.4-5.0); Albumin/Globulin Ratio 1.0 (1.1-1.8); Alkaline Phosphatase 50.0 U/L (45-117); Anion Gap 6.7 mEq/L (5.0-15.0); BUN Blood Urea Nitrogen 16.0 mg/dL (7-18); Globulin 3.5 g/dL (2.3-3.5); Glucose Level 89.0 mg/dL (74-106); Lipase 67.0 U/L (13-75); Potassium 3.7 mEq/L (3.5-5.1)
--- NOTE | 2025-07-18 20:43 | RAD REPORT ---
EXAM: Abdominal exam Limited ultrasound CLINICAL HISTORY: Abdominal pain COMPARISON: None FINDINGS: A gallstone is not seen. 3 mm gallbladder polyp. Small amount of gallbladder sludge. Gallbladder wall not thickened. Biliary tree normal caliber IMPRESSION: Small amount of gallbladder sludge. 3 mm gallbladder polyp likely benign
--- NOTE | 2025-07-18 20:46 | ER ---
Nurse's Notes [facility] Name: Radha Ozuna Age: 50 yrs Sex: Female : 1975 Arrival Date: 07/18/2025 Time: 18:10 Bed 19 Private MD: Diagnosis: Gastro-esophageal reflux disease without esophagitis Presentation: 07/18 18:18 Chief complaint: Patient states: reports having abdominal pain in the upper 2 iw quadrants, 7/10, described as achy, started this afternoon around 1600 after drinking a latte and eating fries. denies chest pain, sob, and heartburn. Coronavirus screen: At this time, the client does not indicate any symptoms associated with coronavirus-19. Ebola Screen: Patient denies travel to an Ebola-affected area in the 21 days before illness onset. No symptoms or risks identified at this time. Initial Sepsis Screen: Does the patient meet any 2 criteria? No. Patient's initial sepsis screen is negative. Does the patient have a suspected source of infection? No. Patient's initial sepsis screen is negative. Risk Assessment: Do you want to hurt yourself or someone else? Patient reports no desire to harm self or others. Onset of symptoms was July 18, 2025. 18:18 Method Of Arrival: Ambulatory iw 18:18 Acuity: LILIBETH 3 iw Triage Assessment: 18:20 General: Appears uncomfortable, Behavior is calm, cooperative, appropriate for age. iw Pain: Complains of pain in right upper quadrant, left upper quadrant and abdomen diffusely Pain radiates to back Pain currently is 7 out of 10 on a pain scale. Quality of pain is described as aching, Pain began 2 hours ago. Historical: - Allergies: 18:20 Codeine; iw 18:20 PENICILLINS; iw 18:20 Reglan; iw - PSHx: 18:20 Appendectomy; breast implants; section; foot surgery; gastric sleeve; iw - Immunization history:: Adult Immunizations up to date. - Infectious Disease History:: Denies. - Social history:: Smoking status: Patient denies any tobacco usage or history of. Screenin:14 [facility] ED Fall Risk Assessment (Adult) History of falling in the last 3 months, kd3 including since admission No falls in past 3 months (0 pts) Confusion or Disorientation No (0 pts) Intoxicated or Sedated No (0 pts) Impaired Gait No (0 pts) Mobility Assist Device Used No (0 pt) Altered Elimination No (0 pt) Score/Fall Risk Level 0 - 2 = Low Risk Maintained a safe environment. Abuse screen: Denies threats or abuse. Denies injuries from another. Nutritional screening: No deficits noted. Tuberculosis screening: No symptoms or risk factors identified. Assessment: 18:24 General: Appears uncomfortable, Behavior is calm, cooperative, appropriate for age. nh2 Pain: Complains of pain in left upper quadrant and right upper quadrant Pain radiates to back Pain currently is 7 out of 10 on a pain scale. Quality of pain is described as aching, Pain began 2 hours ago. Is intermittent. Neuro: Level of Consciousness is awake, alert, obeys commands, Oriented to person, place, time, situation, Appropriate for age. Cardiovascular: Reports nausea, Denies chest pain, shortness of breath, Patient's skin is warm and dry. Respiratory: Airway is patent Respiratory effort is even, unlabored, Respiratory pattern is regular, symmetrical. GI: Bowel sounds present X 4 quads. Abdomen is tender to palpation in right upper quadrant and left upper quadrant Guarding noted. : Denies burning with urination. Derm: Skin is intact, is healthy with good turgor. Musculoskeletal: Range of motion: intact in all extremities. Vital Signs: 18:18 BP 135 / 78; Pulse 67; Resp 19; Temp 97.8(O); Pulse Ox 100% on R/A; Weight 65.77 kg; iw Height 5 ft. 3 in. ; Pain 7/10; 20:13 BP 122 / 78; Pulse 57; Resp 18; Pulse Ox 100% on R/A; kd3 18:18 Body Mass Index 25.69 (65.77 kg, 160.02 cm) iw 18:18 Pain Scale: Adult iw ED Course: 18:12 Patient arrived in ED. mr 18:13 Keven Manuel FNP-C is PHCP. dr5 18:13 Mohamud Guardado DO is Attending Physician. dr5 18:20 Triage completed. iw 19:03 Shoshana Valdivia, RN is Primary Nurse. kd3 19:12 Inserted saline lock: 20 gauge in left antecubital area, using aseptic technique. Blood kd3 collected. Flushed with 10 mL NS. 19:39 Abdomen Limited US: RUQ please In Process Unspecified. EDMS 20:14 Arm band placed on right wrist. kd3 20:14 Patient has correct armband on for positive identification. Provided Education on: kd3 medications . 20:45 Jesse Preston MD is Referral Physician. dr5 20:58 No provider procedures requiring assistance completed. IV discontinued, intact, kd3 bleeding controlled, No redness/swelling at site. Pressure dressing applied. Administered Medications: 19:34 Drug: diphenhydrAMINE IVP 25 mg IVP once Route: IVP; Site: left antecubital; kd3 19:35 Drug: Ondansetron IVP 4 mg IVP once; over 2 minutes Route: IVP; Site: left antecubital; kd3 19:35 Drug: morphine IVP or IV 4 mg IVP once over 4 mins Route: IVP; Infused Over: 4 mins; kd3 Site: left antecubital; 19:35 Drug: NS 0.9% IV 1000 ml IV at 1 bolus Per protocol; to be given as a bolus over 60 kd3 minutes Route: IV; Rate: 1 bolus; Site: left antecubital; 19:35 Drug: GI Cocktail without - (Maalox PO 30 ml, Lidocaine Mucous Membrane 2 % 15 kd3 ml) PO once Route: PO; Medication: 20:14 VIS not applicable for this client. kd3 Outcome: 20:45 Discharge ordered by . dr5 20:59 Discharged to home ambulatory, kd3 20:59 Condition: stable 20:59 Discharge instructions given to patient, family, Instructed on discharge instructions, follow up and referral plans. Demonstrated understanding of instructions, follow-up care, medications, Prescriptions given X 1, 21:06 Patient left the ED. kd3 Signatures: Dispatcher [employer] EDVA Ny Swanson, Reg Reg mr Danni Downey, RN TANIA Shoshana Valdivia RN RN kd3 Christoph Munoz Jr, RN RN nh2 Rhodes, Dustin, JASSON-Hererra [facility]5
--- NOTE | 2025-07-18 20:46 | EDPHYS ---
Physician Documentation [facility] Name: Radha Ozuna Age: 50 yrs Sex: Female : 1975 Arrival Date: 07/18/2025 Time: 18:10 Bed 19 Private MD: ED Physician Mohamud Guardado HPI: 07/18 19:09 This 50 yrs old Female presents to ER via Ambulatory with complaints of dr5 Abdominal Pain. 19:09 The patient presents with abdominal pain in the right upper quadrant. Onset: The dr5 symptoms/episode began/occurred acutely. Patient is a 50-year-old female with no past history coming in with right upper quadrant/epigastric abdominal pain that occurred today. Patient reports the pain started after eating Lithuanian fries. Patient also reports burping and burning up her esophagus.. Patient reports she made an appointment Dr. Preston to see him in clinic on .. Historical: - Allergies: 18:20 Codeine; iw 18:20 PENICILLINS; iw 18:20 Reglan; iw - PSHx: 18:20 Appendectomy; breast implants; section; foot surgery; gastric sleeve; iw - Immunization history:: Adult Immunizations up to date. - Infectious Disease History:: Denies. - Social history:: Smoking status: Patient denies any tobacco usage or history of. ROS: 19:09 Constitutional: as per hpi dr5 Exam: 19:09 Constitutional: This is a well developed, well nourished patient who is awake, alert, dr5 and in no acute distress. Head/Face: Normocephalic, atraumatic. Eyes: Pupils equal round and reactive to light, extra-ocular motions intact. Lids and lashes normal. Conjunctiva and sclera are non-icteric and not injected. Cornea within normal limits. Periorbital areas with no swelling, redness, or edema. Neck: Trachea midline, no thyromegaly or masses palpated, and no cervical lymphadenopathy. Supple, full range of motion without nuchal rigidity, or vertebral point tenderness. No Meningismus. Chest/axilla: Normal chest wall appearance and motion. Nontender with no deformity. No lesions are appreciated. Cardiovascular: Regular rate and rhythm with a normal S1 and S2. Normal PMI, no JVD. No pulse deficits. Respiratory: Lungs have equal breath sounds bilaterally, clear to auscultation. No rales, rhonchi or wheezes noted. No increased work of breathing, no retractions or nasal flaring. Back: No spinal tenderness. No costovertebral tenderness. Full range of motion. Skin: Warm, dry with normal turgor. Normal color with no rashes, no lesions, and no evidence of cellulitis. MS/ Extremity: Pulses equal, no cyanosis. Neurovascular intact. Full, normal range of motion. Neuro: Awake and alert, GCS 15, oriented to person, place, time, and situation. Cranial nerves II-XII grossly intact. Motor strength 5/5 in all extremities. Sensory grossly intact. Cerebellar exam normal. Normal gait. 19:09 Abdomen/GI: Inspection: abdomen appears normal, Bowel sounds: normal, Palpation: mild abdominal tenderness, in the right upper quadrant, moderate abdominal tenderness, in the epigastric area, Vital Signs: 18:18 BP 135 / 78; Pulse 67; Resp 19; Temp 97.8(O); Pulse Ox 100% on R/A; Weight 65.77 kg; iw Height 5 ft. 3 in. ; Pain 7/10; 20:13 BP 122 / 78; Pulse 57; Resp 18; Pulse Ox 100% on R/A; kd3 18:18 Body Mass Index 25.69 (65.77 kg, 160.02 cm) iw 18:18 Pain Scale: Adult iw MDM: 18:13 Medical Screening Exam initiated dr5 20:23 Differential diagnosis: cholecystitis, Cholelithiasis, diverticulitis, gastritis, dr5 gastroesophageal reflux disease, pancreatitis. Data reviewed: vital signs, nurses notes, lab test result(s), amylase and lipase, CBC, white blood cell count, hemoglobin, hematocrit, platelets, electrolytes, sodium, potassium, chloride, serum bicarbonate, BUN, creatinine, serum glucose, urinalysis, radiologic studies, ultrasound. Consideration of Admission/Observation Escalation of care including admission/observation considered. Escalation considered patient found to have cholecystitis.. I considered the following discharge prescriptions or medication management in the emergency department I discussed and recommended Over The Counter medications, Medications were administered in the Emergency Department. See MAR. Care significantly affected by the following chronic conditions:. Care significantly affected by the following Social Determinants of Health: Poor access to healthcare and/or lack of insurance, Poor access to transportation, Problems related to employment. Counseling: I had a detailed discussion with the patient and/or guardian regarding the historical points, exam findings, and any diagnostic results supporting the discharge/admit diagnosis, the presence of at least one elevated blood pressure reading (>120/80) during this emergency department visit, lab results, radiology results, the need for outpatient follow up, for definitive care, a family practitioner, a general surgeon, to return to the emergency department if symptoms worsen or persist or if there are any questions or concerns that arise at home. Medication response: Response to treatment: the patient's symptoms have resolved after treatment, the patient's condition has returned to base line, the patient is now symptom free. Special discussion: Based on the patient's Hx, exam, and Dx evaluation, there is no indication for emergent surgery or inpatient Tx. It is understood by the patient/guardian that if the Sx's persist or worsen they need to return immediately for re-evaluation. I discussed with the patient/guardian in detail that at this point there is no indication for admission to the hospital. It is understood, however, that if the symptoms persist or worsen the patient needs to return immediately for re-evaluation. Based on the history and exam findings, there is no indication for further emergent testing or inpatient evaluation. I discussed with the patient/guardian the need to see the general surgeon for further evaluation of the symptoms. ED course: Will have patient follow-up with Dr. Preston on as scheduled. Discussed GERD and healthy diet foods to eat. Will have patient follow-up this . All questions are. Return precautions given. Will start patient on PPI.. 07/18 18: Order name: CBC with Diff; Complete Time: 19: [facility] 07/18 18: Order name: CMP; Complete Time: 19:42 dr5 07/18 18: Order name: Lipase; Complete Time: 19:42 [facility] 07/18 18: Order name: UA Rfx Sacha Cult if indicated; Complete Time: 19: [facility] 07/18 18: Order name: Abdomen Limited US: RUQ please; Complete Time: 20:45 [facility] 07/18 18: Order name: IV Saline Lock; Complete Time: 19:12 dr5 07/18 18: Order name: Labs collected and sent; Complete Time: 19:12 dr5 Administered Medications: 19:34 Drug: diphenhydrAMINE IVP 25 mg IVP once Route: IVP; Site: left antecubital; kd3 19:35 Drug: Ondansetron IVP 4 mg IVP once; over 2 minutes Route: IVP; Site: left antecubital; kd3 19:35 Drug: morphine IVP or IV 4 mg IVP once over 4 mins Route: IVP; Infused Over: 4 mins; kd3 Site: left antecubital; 19:35 Drug: NS 0.9% IV 1000 ml IV at 1 bolus Per protocol; to be given as a bolus over 60 kd3 minutes Route: IV; Rate: 1 bolus; Site: left antecubital; 19:35 Drug: GI Cocktail without - (Maalox PO 30 ml, Lidocaine Mucous Membrane 2 % 15 kd3 ml) PO once Route: PO; Disposition: 20:00 I was immediately available on-site in the Emergency Department for consultation in the ms3 care of the patient. Disposition Summary: 07/18/25 20:45 Discharge Ordered Notes: Location: Home dr5 Condition: Stable dr5 Diagnosis - Gastro-esophageal reflux disease without esophagitis dr5 Followup: dr5 - With: Emergency Department - When: As needed - Reason: Worsening of condition Followup: dr5 - With: Jesse Preston MD - When: 1 - 2 days - Reason: Recheck today's complaints, Continuance of care, Re-evaluation by your physician Discharge Instructions: - Discharge Summary Sheet dr5 - Food Choices for Gastroesophageal Reflux Disease, Adult dr5 - Gastroesophageal Reflux Disease, Adult dr5 Forms: - Medication Reconciliation Form dr5 - Patient Portal Instructions dr5 - Leadership Thank You Letter dr5 Prescriptions: - Protonix 40 mg Oral Tablet - take 1 tablet ORAL route once daily; 30 tablet; Refills: 0, Product Selection dr5 Permitted Signatures: Dispatcher [employer] Danni Cross RN RN iw Sims, Marcus, DO DO ms3 Shoshana Valdivia RN RN kd3 Keven Manuel, JASSON-C TRIALS MANAGER-Cdr5
[2025-07-19 04:52] VITALS: TEMP 97.8; O2SAT 100
[2025-07-19 05:02] VITALS: BP 122/78
== END 2025-07-18 21:06 | disposition home or self-care (01) ==
LOC: ER 18:10
DX: K21.9 Gastro-esophageal reflux disease without esophagitis (principal)
CPT/HCPCS: 36415; 76705; 80053; 81003; 83690; 85025; 96374; 96375; 99284; J1200; J2405; J7030